=== PATIENT | male | born 1935 | race Caucasian/White ===

== ENCOUNTER 2018-11-21 08:18 | Emergency (ER) | payer MEDICARE, OTHER ==
[2018-11-21] MEDS ORDERED: OXYMETAZOLINE HCL 0.05% NASAL SPRAY 15 ML BOTTLE NASL ONE (08:58)
[2018-11-21] MEDS ORDERED: TRANEXAMIC ACID INJ/PF 1,000 MG/10 ML SDV IV ONE (09:16)
--- NOTE | 2018-11-21 09:17 | ER Document Report ---
ED ENT - General Chief Complaint: Nose Bleed Stated Complaint: NOSE BLEED Time Seen by Provider: 11/21/18 08:51 Mode of Arrival: Ambulatory Information source: Patient Notes: Patient presents complaining of left-sided nosebleed that started around 740 this morning. Patient did pack his nose with tissue and the bleeding has stopped. Patient states that he has had a history of a nasal fracture and has had this problem in the past that required cautery to stop the bleeding. Patient states that during the winter months when it is dry he will occasionally have nosebleeds. Patient denies any new trauma to the nose. Patient does take Xarelto for A. fib. Patient denies any other abnormal bleeding or bruising. TRAVEL OUTSIDE OF THE [place] IN LAST 30 DAYS: No - HPI Patient complains to provider of: Nose problem Onset: This morning Onset/Duration: Sudden Pain Level: Denies Associated symptoms: Nose bleed Similar symptoms previously: Yes Recently seen / treated by doctor: No - Related Data Allergies/Adverse Reactions: No Known Allergies Allergy (Verified 11/21/18 08:22) Past Medical History - General Information source: Patient - Social History Smoking Status: Never Smoker Frequency of alcohol use: None Drug Abuse: None Lives with: Spouse/Significant other Family History: Reviewed & Not Pertinent Patient has suicidal ideation: No Patient has homicidal ideation: No - Medical History Medical History: Other - Agent orange exposure - Past Medical History Cardiac Medical History: Reports: Hx Atrial Fibrillation, Hx Hypercholesterolemia, Hx Hypertension Renal/ Medical History: Denies: Hx Peritoneal Dialysis Past Surgical History: Reports: Hx Cardiac Surgery - Pacemaker defibrillator Review of Systems - Review of Systems Constitutional: No symptoms reported. denies: Fever, Recent illness EENT: Nose discharge Cardiovascular: No symptoms reported. denies: Chest pain, Syncope, Dizziness Respiratory: No symptoms reported. denies: Cough, Short of breath Gastrointestinal: No symptoms reported. denies: Vomiting Genitourinary: No symptoms reported Male Genitourinary: No symptoms reported Musculoskeletal: No symptoms reported Skin: No symptoms reported Hematologic/Lymphatic: No symptoms reported Neurological/Psychological: No symptoms reported. denies: Weakness, Lost consciousness, Headaches Physical Exam - Vital signs Vitals: Pulse Resp BP Pulse Ox 81 18 125/70 97 11/21/18 11:00 11/21/18 11:00 11/21/18 11:00 11/21/18 11:00 - General General appearance: Appears well, Alert In distress: None - HEENT Head: Normocephalic, Atraumatic Eyes: Normal Conjunctiva: Normal Nasal: Epistaxis Mouth/Lips: Normal Mucous membranes: Normal Neck: Normal, Supple. No: Lymphadenopathy - Respiratory Respiratory status: No respiratory distress Chest status: Nontender Breath sounds: Normal. No: Rales, Rhonchi, Stridor, Wheezing Chest palpation: Normal - Cardiovascular Rhythm: Regular Heart sounds: S1 appreciated, S2 appreciated - Abdominal Inspection: Normal Distension: No distension Bowel sounds: Normal Tenderness: Nontender - Back Back: Normal, Nontender - Extremities General upper extremity: Normal inspection, Normal ROM General lower extremity: Normal inspection, Normal ROM - Neurological Neuro grossly intact: Yes Cognition: Normal [place]iss Coma Scale Eye Opening: Spontaneous [place] Coma Scale Verbal: Oriented [place] Coma Scale Motor: Obeys Commands Criss Coma Scale Total: 15 - Psychological Associated symptoms: Normal affect, Normal mood - Skin Skin Temperature: Warm Skin Moisture: Dry Skin Color: Normal Course - Re-evaluation Re-evalutation: 11/21/18 09:16 Attempted control of epistaxis with the use of Afrin packing and pressure to the nose. Patient continues with bloody drainage from left nostril. Consulted with Dr. Vance, recommends TXA nasally, does not recommend labs at this time. Does recommend advising patient to hold his dose of Xarelto for today only. 11/21/18 09:30 TXA administered via atomizer to left nostril. 11/21/18 10:15 no additional bleeding noted. No blood noted in posterior pharynx. Patient encouraged to call his primary doctor to discuss his medication regimen given that he takes Xarelto. - Vital Signs Vital signs: Temp Pulse Resp BP Pulse Ox 81 18 125/70 97 11/21/18 11:00 11/21/18 11:00 11/21/18 11:00 11/21/18 11:00 Discharge - Discharge Clinical Impression: Left-sided nosebleed Condition: Stable Disposition: HOME, SELF-CARE Instructions: Nosebleed Instructions ([facility]) Additional Instructions: Return immediately for any new or worsening symptoms Followup with your primary care provider, call today to make a followup appointment Hold your dose of Xarelto for today only. Referrals: WIL SWEENEY MD [Primary Care Provider] - Follow up as needed
[2018-11-21 11:00] VITALS: BP 125/70
== END 2018-11-21 11:00 | disposition home or self-care (01) ==
LOC: ER 08:18
DX: R04.0 Epistaxis (principal); I48.91 Unspecified atrial fibrillation; Z79.01 Long term (current) use of anticoagulants; I10 Essential (primary) hypertension; Z95.810 Presence of automatic (implantable) cardiac defibrillator
CPT/HCPCS: 99283; 30901; J3490 ×2

== ENCOUNTER 2019-05-20 01:28 | Emergency (ER) | payer MEDICARE, OTHER ==
[2019-05-20 02:15] LABS: ABSOLUTE BASOPHILS # (AUTO) 0.1 10^3/uL (0.0-0.2); ABSOLUTE LYMPHOCYTES (AUTO) 1.5 10^3/uL (0.5-4.7); ABSOLUTE MONOCYTES (AUTO) 0.7 10^3/uL (0.1-1.4); ABSOLUTE NEUT (AUTO) 6.5 10^3/uL (1.7-8.2); BASOPHILS % (AUTO) 0.6 % (0-2); EOSINOPHILS % (AUTO) 0.6 % (0-6); HEMATOCRIT 41.5 % (37.9-51.0); MEAN CORPUSCULAR HEMOGLOBIN 27.9 pg (27.0-33.4); MEAN CORPUSCULAR HGB CONC 33.8 g/dL (32.0-36.0); MEAN CORPUSCULAR VOLUME 83 fl (80-97); MONOCYTES % (AUTO) 7.6 % (3-13); PLATELET COUNT 238 10^3/uL (150-450); RED BLOOD COUNT 5.02 10^6/uL (4.35-5.55); SEGMENTED NEUTROPHILS % (AUTO) 74.2 % (42-78); TOTAL CELLS COUNTED % (AUTO) 100 %; WHITE BLOOD COUNT 8.7 10^3/uL (4.0-10.5)
[2019-05-20 02:18] LABS: APPEARANCE,URINE CLEAR; BILIRUBIN,URINE NEGATIVE (NEGATIVE); COLOR,URINE AMBER; GLUCOSE, URINE NEGATIVE (NEGATIVE); KETONES,URINE NEGATIVE (NEGATIVE); LEUKOCYTE ESTERASE,URINE NEGATIVE (NEGATIVE); NITRITE,URINE POSITIVE (NEGATIVE); PROTEIN,URINE NEGATIVE (NEGATIVE); URINE SPECIFIC GRAVITY 1.014
[2019-05-20 02:40] LABS: ALANINE AMINOTRANSFERASE 34 U/L (21-72); ALBUMIN 3.7 g/dL (3.5-5.0); ALKALINE PHOSPHATASE 62 U/L (38-126); ANION GAP 9 (5-19); ASPARTATE AMINO TRANSFERASE 32 U/L (17-59); BILIRUBIN,DIRECT 0.3 mg/dL (0.0-0.4); BILIRUBIN,TOTAL 0.7 mg/dL (0.2-1.3); BLOOD UREA NITROGEN 18 mg/dL (7-20); CALCIUM 9.5 mg/dL (8.4-10.2); CARBON DIOXIDE 23 mmol/L (22-30); CHLORIDE 104 mmol/L (98-107); CREATINE KINASE 36 U/L (55-170); GLUCOSE 95 mg/dL (75-110); POTASSIUM 4.4 mmol/L (3.6-5.0); SODIUM 136.3 mmol/L (137-145)
[2019-05-20 02:53] LABS: TROPONIN I < 0.012 ng/mL
--- NOTE | 2019-05-20 03:03 | ER Document Report ---
ED General - General Chief Complaint: Near Syncope Stated Complaint: NEAR SYNCOPE Time Seen by Provider: 05/20/19 02:35 Primary Care Provider: WIL SWEENEY MD [Primary Care Provider] - Follow up in 3-5 days Notes: Patient is a 84-year-old male that presents to the emergency department for chief complaint of lightheadedness. Patient states that he stood up this morning, and felt lightheaded, felt like he may pass out, so EMS was called. He states he is being treated for prostatitis, has been on an antibiotic since Saturday, he was drinking plenty of fluids over the past several days, but today he only had 2 bottles of water, because he thought he did not need to drink as much fluids because the burning with urination had resolved. Per EMS he did have positive orthostatics, was given IV fluids a total of 500 mL's, and the patient at this time is feeling much better, denies lightheadedness, he did not have chest pain, nausea or vomiting associated with this. He denies having any shortness of breath, headache, blurred vision, numbness, tingling or weakness in any extremity. Denies any complaints at this time. He does report that he is taking Bactrim, and has been taking it twice daily since Saturday. Past Medical History: CHF, hypertension, hyperlipidemia, CAD Past Surgical History: PCI with stenting x2, AICD Social History: Denies tobacco, alcohol or drug use. Family History: Reviewed and noncontributory for presenting illness Allergies: Reviewed, see documented allergy list. REVIEW OF SYSTEMS: Other than noted above, the 12 point review of systems was reviewed with the patient and were negative, all pertinent findings are included in the HPI. PHYSICAL EXAMINATION: Vital signs reviewed, nursing noted reviewed. GENERAL: Elderly male, no acute distress HEAD: Atraumatic, normocephalic. EYES: Eyes appear normal, extraocular movements intact, sclera anicteric, conjunctiva are normal. ENT: nares patent, oropharynx clear without exudates. Moist mucous membranes. NECK: Normal range of motion, supple without lymphadenopathy LUNGS: Breath sounds clear to auscultation bilaterally and equal. No wheezes rales or rhonchi. HEART: Regular rate and rhythm without murmurs ABDOMEN: Soft, nontender, normoactive bowel sounds. No rebound, guarding, or rigidity. No masses appreciated. EXTREMITIES: Nontender, good range of motion, no pitting or edema. NEUROLOGICAL: No focal neurological deficits. Moves all extremities spontaneously Motor and sensory grossly intact on exam. PSYCH: Normal mood, normal affect. SKIN: Warm, Dry, normal turgor, no rashes or lesions noted on exposed skin TRAVEL OUTSIDE OF THE [place] IN LAST 30 DAYS: No - Related Data Allergies/Adverse Reactions: No Known Allergies Allergy (Verified 11/21/18 08:22) Past Medical History - Social History Smoking Status: Unknown if Ever Smoked Family History: Reviewed & Not Pertinent Patient has suicidal ideation: No Patient has homicidal ideation: No - Past Medical History Cardiac Medical History: Reports: Hx Atrial Fibrillation, Hx Hypercholesterolemia, Hx Hypertension Renal/ Medical History: Denies: Hx Peritoneal Dialysis Past Surgical History: Reports: Hx Cardiac Surgery - Pacemaker defibrillator Physical Exam - Vital signs Vitals: Temp 98.1 F 05/20/19 01:40 Course - Re-evaluation Re-evalutation: Patient seen and examined vital signs reviewed. Laboratory data and/or imaging were ordered as appropriate for the patient's presenting symptoms and complaint, with consideration of any critical or life threatening conditions that may be associated with their obtained history and exam as noted above. Patient was treated with IV fluids, provided by EMS, total 500 mL's Results were reviewed when available and demonstrated very mild hyponatremia, creatinine was 1.3, no baseline for comparison, otherwise patient's blood work was unremarkable, EKG did not demonstrate any abnormal dysrhythmias, or concerning findings, UA did demonstrate positive for nitrites, but was otherwise negative. The patient was re-evaluated and was stable, asymptomatic, patient was able to ambulate around the emergency department, without any difficulty or any symptoms. I did discuss with the patient and the patient's , that Bactrim is not a good medication given that he has mild chronic kidney disease, is elderly, and on an SUSAN inhibitor, he takes ramipril, the risk of hyperkalemia and sudden is high in the situation particular with Bactrim, advised to discontinue his medication, and will place him on Omnicef, take for 10 additional days. They were agreeable with this plan of care. Evaluation was most consistent with near syncope, mild dehydration, advised to continue drinking plenty of fluids, if he has repeat symptoms to return, I do feel the patient had orthostatic syncope today, and is safe to be discharged at this time and the patient was agreeable with this plan of care and did feel safe going home. Results were discussed with the patient at this point, after careful consideration I feel that that patient can be discharged from the emergency department, the patient was educated treatments and reasons to return to the em ergency department based on their presumed diagnosis as noted above, they were advised to followup with a primary care physician in 2-3 days. Patient was agreeable to plan of care. *Note is created using voice recognition software and may contain spelling, syntax or grammatical errors. Laboratory 05/20/19 05/20/19 05/20/19 01:55 01:55 01:55 WBC 8.7 RBC 5.02 Hgb 14.0 Hct 41.5 MCV 83 MCH 27.9 MCHC 33.8 RDW 15.0 H Plt Count 238 Seg Neutrophils % 74.2 Lymphocytes % 17.0 Monocytes % 7.6 Eosinophils % 0.6 Basophils % 0.6 Absolute Neutrophils 6.5 Absolute Lymphocytes 1.5 Absolute Monocytes 0.7 Absolute Eosinophils 0.0 Absolute Basophils 0.1 Sodium 136.3 L Potassium 4.4 Chloride 104 Carbon Dioxide 23 Anion Gap 9 BUN 18 Creatinine 1.35 H Est GFR ( Amer) > 60 Est GFR (Non-Af Amer) 50 L Glucose 95 Calcium 9.5 Total Bilirubin 0.7 Direct Bilirubin 0.3 Neonat Total Bilirubin Not Reportable Neonat Direct Bilirubin Not Reportable Neonat Indirect Bili Not Reportable AST 32 ALT 34 Alkaline Phosphatase 62 Creatine Kinase 36 L CK-MB (CK-2) 1.50 Troponin I < 0.012 Total Protein 6.0 L Albumin 3.7 Urine Color Urine Appearance Urine pH Ur Specific [place] Urine Protein Urine Glucose (UA) Urine Ketones Urine Blood Urine Nitrite Urine Bilirubin Urine Urobilinogen Ur Leukocyte Esterase Urine WBC (Auto) Urine RBC (Auto) U Hyaline Cast (Auto) Squamous Epi Cells Auto Urine Mucus (Auto) Urine Ascorbic Acid 05/20/19 02:03 WBC RBC Hgb Hct MCV MCH MCHC RDW Plt Count Seg Neutrophils % Lymphocytes % Monocytes % Eosinophils % Basophils % Absolute Neutrophils Absolute Lymphocytes Absolute Monocytes Absolute Eosinophils Absolute Basophils Sodium Potassium Chloride Carbon Dioxide Anion Gap BUN Creatinine Est GFR ( Amer) Est GFR (Non-Af Amer) Glucose Calcium Total Bilirubin Direct Bilirubin Neonat Total Bilirubin Neonat Direct Bilirubin Neonat Indirect Bili AST ALT Alkaline Phosphatase Creatine Kinase CK-MB (CK-2) Troponin I Total Protein Albumin Urine Color BETINA Urine Appearance CLEAR Urine pH 6.0 Ur Specific [place] 1.014 Urine Protein NEGATIVE Urine Glucose (UA) NEGATIVE Urine Ketones NEGATIVE Urine Blood NEGATIVE Urine Nitrite POSITIVE H Urine Bilirubin NEGATIVE Urine Urobilinogen 4.0 H Ur Leukocyte Esterase NEGATIVE Urine WBC (Auto) 1 Urine RBC (Auto) 1 U Hyaline Cast (Auto) 1 Squamous Epi Cells Auto <1 Urine Mucus (Auto) RARE Urine Ascorbic Acid NEGATIVE - Vital Signs Vital signs: Temp Pulse Resp BP Pulse Ox 98.1 F 17 115/81 94 05/20/19 01:40 05/20/19 04:00 05/20/19 03:01 05/20/19 04:00 - Laboratory Result Diagrams: 05/20/19 01:55 05/20/19 01:55 Laboratory results interpreted by me: 05/20/19 05/20/19 05/20/19 01:55 01:55 02:03 RDW 15.0 H Sodium 136.3 L Creatinine 1.35 H Est GFR (Non-Af Amer) 50 L Creatine Kinase 36 L Total Protein 6.0 L Urine Nitrite POSITIVE H Urine Urobilinogen 4.0 H - EKG Interpretation by Me Additional EKG results interpreted by me: EKG demonstrates atrial paced rhythm with a ventricular rate of 69 bpm, left axis deviation, QTC 480 ms, no ST elevation, no prior for comparison at this time. Discharge - Discharge Clinical Impression: Near syncope Condition: Stable Disposition: HOME, SELF-CARE Instructions: Near Syncopal Episode ([facility]) Additional Instructions: Please discontinue taking the Bactrim as been prescribed, and I have switched you to a different medication called cefdinir to treat the urinary tract infection, please take this twice daily for 10 days. Please follow-up with your primary care physician. Maintain your hydration, drink plenty of fluids throughout the day. Prescriptions: RX: Cefdinir 300 mg PO BID #20 capsule Referrals: WIL SWEENEY MD [Primary Care Provider] - Follow up in 3-5 days
[2019-05-20 03:33] VITALS: BP 115/81
--- NOTE | 2019-05-20 17:57 | EKG REPORT ---
SEVERITY:- ABNORMAL ECG - ATRIAL-PACED RHYTHM PROBABLE INFERIOR INFARCT, AGE INDETERMINATE BORDERLINE PROLONGED QT INTERVAL : Confirmed by: Leidy Correa 20-May-2019 17:56:05
== END 2019-05-20 04:17 | disposition home or self-care (01) ==
LOC: ER 01:28
DX: R42 Dizziness and giddiness (principal); I50.9 Heart failure, unspecified; I11.0 Hypertensive heart disease with heart failure; I25.10 Atherosclerotic heart disease of native coronary artery without angina pectoris
CPT/HCPCS: 36415; 80053; 81001; 82550; 82553; 84484; 85025; 87086; 93005; 93010; 99284

== ENCOUNTER 2019-05-21 02:38 | Observation (INO) | payer MEDICARE, OTHER ==
[2019-05-21 05:38] LABS: ABSOLUTE BASOPHILS # (AUTO) 0.1 10^3/uL (0.0-0.2); ABSOLUTE EOSINOPHILS # (AUTO) 0.1 10^3/uL (0.0-0.6); ABSOLUTE LYMPHOCYTES (AUTO) 1.5 10^3/uL (0.5-4.7); ABSOLUTE MONOCYTES (AUTO) 0.8 10^3/uL (0.1-1.4); ABSOLUTE NEUT (AUTO) 6.8 10^3/uL (1.7-8.2); BASOPHILS % (AUTO) 0.7 % (0-2); EOSINOPHILS % (AUTO) 0.6 % (0-6); HEMATOCRIT 43.6 % (37.9-51.0); HEMOGLOBIN 14.7 g/dL (13.5-17.0); LYMPHOCYTES % (AUTO) 16.6 % (13-45); MEAN CORPUSCULAR HEMOGLOBIN 27.9 pg (27.0-33.4); MEAN CORPUSCULAR HGB CONC 33.7 g/dL (32.0-36.0); MEAN CORPUSCULAR VOLUME 83 fl (80-97); MONOCYTES % (AUTO) 8.1 % (3-13); PLATELET COUNT 244 10^3/uL (150-450); RED BLOOD COUNT 5.27 10^6/uL (4.35-5.55); RED CELL DISTRIBUTION WIDTH 15.2 % (11.5-14.0); TOTAL CELLS COUNTED % (AUTO) 100 %; WHITE BLOOD COUNT 9.3 10^3/uL (4.0-10.5)
[2019-05-21 06:26] LABS: ALANINE AMINOTRANSFERASE 36 U/L (21-72); ALKALINE PHOSPHATASE 67 U/L (38-126); ANION GAP 8 (5-19); ASPARTATE AMINO TRANSFERASE 30 U/L (17-59); BILIRUBIN,DIRECT 0.2 mg/dL (0.0-0.4); BLOOD UREA NITROGEN 20 mg/dL (7-20); CARBON DIOXIDE 26 mmol/L (22-30); CHLORIDE 101 mmol/L (98-107); CREATINE KINASE 36 U/L (55-170); GLUCOSE 106 mg/dL (75-110); POTASSIUM 4.4 mmol/L (3.6-5.0); SODIUM 134.9 mmol/L (137-145); TOTAL PROTEIN 6.6 g/dL (6.3-8.2)
[2019-05-21 06:38] LABS: CREATINE KINASE MB 1.65 ng/mL (<4.55)
[2019-05-21 06:39] LABS: TROPONIN I < 0.012 ng/mL
--- NOTE | 2019-05-21 06:47 | ER Document Report ---
ED General - General Chief Complaint: Abdominal Pain >50 Stated Complaint: WEAKNESS Time Seen by Provider: 05/21/19 06:28 Primary Care Provider: WIL SWEENEY MD [Primary Care Provider] - Follow up as needed TRAVEL OUTSIDE OF THE [place] IN LAST 30 DAYS: No - HPI Notes: Patient is a 84-year-old male that presents to the emergency department for chief complaint of chest pain. Patient reports last night he was sleeping in his recliner chair. He states he was in and out of sleep when he started to feel a heaviness in his left chest. He states it was left parasternal near his inframammary line. He describes it as a heaviness that was constant for about 30 minutes. He reported feeling dizzy and lightheaded. Patient denied associated shortness of breath diaphoresis nausea or vomiting. He states that it felt like he was having gas. He denies aggravating or relieving factors. Currently he states he is feeling much better. He is no longer having this heaviness. He did take 4 baby aspirin during this episode around 2 AM this morning. Patient has a history of coronary stenting x2. He had one stent placed in 2003 and the second in 2013. He has not had cardiac stress test in the last few years. He does have an appointment with his environmental health physician next week for routine follow-up. Past Medical History: CHF, hypertension, hyperlipidemia, CAD Past Surgical History: PCI with stenting x2, AICD Social History: Denies tobacco, alcohol or drug use. Family History: Reviewed and noncontributory for presenting illness Allergies: Reviewed, see documented allergy list. REVIEW OF SYSTEMS: CONSTITUTIONAL : No fever No chills No diaphoresis No recent illness EENT: No vision changes No congestion No sore throat CARDIOVASCULAR: chest pain No palpitations RESPIRATORY: No shortness of breath No cough No difficulty breathing GASTROINTESTINAL: No abdominal pain No nausea No vomiting No diarrhea GENITOURINARY: No dysuria No hematuria No difficulty urinating MUSCULOSKELETAL: No back pain No leg pain No arm pain SKIN: No rashes No lesions LYMPHATIC: No swollen, enlarged glands. NEUROLOGICAL: lightheadedness No headache No weakness No paresthesias PSYCHIATRIC: No anxiety No depression PHYSICAL EXAMINATION: Vital signs reviewed, nursing noted reviewed. GENERAL: Well-appearing, well-nourished and in no acute distress. HEAD: Atraumatic, normocephalic. EYES: Eyes appear normal, extraocular movements intact, sclera anicteric, conjunctiva are normal. ENT: nares patent, oropharynx clear without exudates. Moist mucous membranes. NECK: Normal range of motion, supple without lymphadenopathy LUNGS: Breath sounds clear to auscultation bilaterally and equal. No wheezes rales or rhonchi. HEART: Regular rate and rhythm without murmurs, +2/4 bilateral radial pulses ABDOMEN: Soft, nontender, normoactive bowel sounds. No rebound, guarding, or rigidity. No masses appreciated. EXTREMITIES: Nontender, good range of motion, no pitting or edema. NEUROLOGICAL: No focal neurological deficits. Moves all extremities spontaneously Motor and sensory grossly intact on exam. PSYCH: Normal mood, normal affect. SKIN: Warm, Dry, normal turgor, no rashes or lesions noted on exposed skin - Related Data Allergies/Adverse Reactions: No Known Allergies Allergy (Verified 11/21/18 08:22) Past Medical History - Social History Smoking Status: Never Smoker Chew tobacco use (# tins/day): No Frequency of alcohol use: None Drug Abuse: None Family History: Reviewed & Not Pertinent Patient has suicidal ideation: No Patient has homicidal ideation: No - Past Medical History Cardiac Medical History: Reports: Hx Atrial Fibrillation, Hx Hypercholesterolemia, Hx Hypertension Renal/ Medical History: Denies: Hx Peritoneal Dialysis Past Surgical History: Reports: Hx Cardiac Surgery - Pacemaker defibrillator Physical Exam - Vital signs Vitals: Temp Pulse Resp BP Pulse Ox 99 F 70 20 100/63 97 05/21/19 02:44 05/21/19 02:44 05/21/19 02:44 05/21/19 02:44 05/21/19 02:44 Course - Re-evaluation Re-evalutation: 05/21/19 06:45 Vitals reviewed. Nursing notes reviewed. Patient had 4 baby aspirin about 4-1/ 2 hours ago. He is currently asymptomatic. Patient was seen here yesterday and diagnosed with urinary tract infection as well as orthostatic hypotension. He reports the chest pain he experienced last night was a new symptom and was not going on yesterday. Patient is on telemetry monitoring. EKG shows atrial paced rhythm with no ST elevations 05/21/19 07:45 Patient's lab work shows mild elevation in creatinine at 1.3. He has a normal troponin. The remainder of his work-up is unremarkable including chest x-ray. Patient does have significant cardiac history and will be admitted to the [facility] for telemetry monitoring and further cardiac evaluation. Patient has not had recurrence of his chest pain while in the emergency room. He and his are in agreement with this plan of care. He is stable at time of admission. Laboratory 05/21/19 05/21/19 05/21/19 05:16 05:16 05:16 WBC 9.3 RBC 5.27 Hgb 14.7 Hct 43.6 MCV 83 MCH 27.9 MCHC 33.7 RDW 15.2 H Plt Count 244 Seg Neutrophils % 74.0 Lymphocytes % 16.6 Monocytes % 8.1 Eosinophils % 0.6 Basophils % 0.7 Absolute Neutrophils 6.8 Absolute Lymphocytes 1.5 Absolute Monocytes 0.8 Absolute Eosinophils 0.1 Absolute Basophils 0.1 Sodium Cancelled Potassium Cancelled Chloride Cancelled Carbon Dioxide Cancelled Anion Gap Cancelled BUN Cancelled Creatinine Cancelled Est GFR ( Amer) Cancelled Est GFR (Non-Af Amer) Cancelled Glucose Cancelled Calcium Cancelled Total Bilirubin Cancelled Direct Bilirubin Cancelled Neonat Total Bilirubin Cancelled Neonat Direct Bilirubin Cancelled Neonat Indirect Bili Cancelled AST Cancelled ALT Cancelled Alkaline Phosphatase Cancelled Creatine Kinase Cancelled CK-MB (CK-2) Cancelled Troponin I Cancelled Total Protein Cancelled Albumin Cancelled 05/21/19 05/21/19 06:01 06:01 WBC RBC Hgb Hct MCV MCH MCHC RDW Plt Count Seg Neutrophils % Lymphocytes % Monocytes % Eosinophils % Basophils % Absolute Neutrophils Absolute Lymphocytes Absolute Monocytes Absolute Eosinophils Absolute Basophils Sodium 134.9 L Potassium 4.4 Chloride 101 Carbon Dioxide 26 Anion Gap 8 BUN 20 Creatinine 1.32 H Est GFR ( Amer) > 60 Est GFR (Non-Af Amer) 52 L Glucose 106 Calcium 10.0 Total Bilirubin 1.0 Direct Bilirubin 0.2 Neonat Total Bilirubin Not Reportable Neonat Direct Bilirubin Not Reportable Neonat Indirect Bili Not Reportable AST 30 ALT 36 Alkaline Phosphatase 67 Creatine Kinase 36 L CK-MB (CK-2) 1.65 Troponin I < 0.012 Total Protein 6.6 Albumin 4.0 Chest X-Ray 05/21/19 06:29 IMPRESSION: No acute cardiopulmonary findings. 05/21/19 08:00 Patient care was discussed with Dr. Clarke and Lissy Olea who accepted admission - Vital Signs Vital signs: Temp Pulse Resp BP Pulse Ox 99 F 70 18 136/86 H 96 05/21/19 02:44 05/21/19 02:44 05/21/19 05:17 05/21/19 05:17 05/21/19 05:32 - Laboratory Result Diagrams: 05/21/19 05:16 05/21/19 06:01 Laboratory results interpreted by me: 05/21/19 05/21/19 05:16 06:01 RDW 15.2 H Sodium 134.9 L Creatinine 1.32 H Est GFR (Non-Af Amer) 52 L Creatine Kinase 36 L - EKG Interpretation by Me Additional EKG results interpreted by me: 05/21/19 06:45 Interpreted by myself [id number]: Atrially paced rhythm, rate 74, normal axis, no ectopy, no STEMI Discharge - Discharge Clinical Impression: Chest pain Qualifiers: Chest pain type: unspecified Qualified Code(s): R07.9 - Chest pain, unspecified Condition: Stable Disposition: ADMITTED OBSERVATION Admitting Provider: Vince (Hospitalist) Unit Admitted: Telemetry Referrals: WIL SWEENEY MD [Primary Care Provider] - Follow up as needed
[2019-05-21] MEDS ORDERED: NORMAL SALINE 1000 ML 500 ML IV ONE (06:48)
--- NOTE | 2019-05-21 07:31 | RADIOLOGY REPORT (SQ) ---
EXAM DESCRIPTION: XR CHEST 1 VIEW COMPLETED DATE/TME: 05/21/2019 06:29 CLINICAL HISTORY: 84 years Male, chest pain COMPARISON: None. NUMBER OF VIEWS/TECHNIQUE: 1/AP FINDINGS: Adequate lung volume, clear parenchyma, normal cardiac silhouette, and intact bony thorax. Left cardiac stimulator with leads. Atherosclerotic vascular disease. IMPRESSION: No acute cardiopulmonary findings.
[2019-05-21] MEDS ORDERED: NITROGLYCERIN 0.4 MG/TAB 25 TAB/BOTTLE SL PRN (08:46)
[2019-05-21] MEDS ORDERED: ACETAMINOPHEN 325 MG TABLET PO PRN (08:46)
[2019-05-21] MEDS ORDERED: ASPIRIN 81 MG TABLET, ENT COATED PO SCH (10:00)
[2019-05-21] MEDS ORDERED: CEFTRIAXONE 1 GM/D5W RTU 1 GM/50 ML RTUPB IV SCH (10:00)
[2019-05-21] MEDS: FAMOTIDINE 20 MG TABLET PO SCH ×2 (10:26→17:36)
[2019-05-21] MEDS: CEFTRIAXONE SODIUM 1,000 MG in DEXTROSE 5%-WATER 50 ML IV SCH (10:26)
--- NOTE | 2019-05-21 15:57 | PDOC H&P ---
History of Present Illness Admission Date/PCP: 05/21/19 08:23 WIL SWEENEY MD Patient complains of: epigastric pain History of Present Illness: PARAG HERRERA is a 84 year old male with a past medical history significant for CO with stents x2, atrial fibrillation chronically anticoagulated on Xarelto, hypertension, hyperlipidemia, and pacemaker who presented to the emergency department today with a complaint of sudden onset epigastric/chest discomfort that woke him from his sleep at approximately 2 AM. Patient describes the pain as heaviness that was nonradiating and lasted approximately 30 minutes. Patient had no other associated symptoms and denies alleviating or aggravating factors. Of note, the patient was seen in the emergency department yesterday and diagnosed with a UTI. He was discharged home with p.o. Ceftin. He denies continued urgency, frequency and dysuria though is also on Pyridium. Evaluation in the emergency department is unremarkable with normal CBC, chemistry, negative troponin, benign chest x-ray, and EKG demonstrating an atrial paced rhythm. He is referred to the hospitalist service for evaluation and management of the above-stated complaints and findings. Past Medical History Cardiac Medical History: Reports: Atrial Fibrillation, Myocardial Infarction, Hyperlipidema, Hypertension Pulmonary Medical History: Reports: None EENT Medical History: Reports: None Neurological Medical History: Reports: None Endocrine Medical History: Reports: None Renal/ Medical History: Reports: None Malignancy Medical History: Reports: None GI Medical History: Reports: None Musculoskeltal Medical History: Reports: None Skin Medical History: Reports: None Psychiatric Medical History: Reports: None Traumatic Medical History: Reports: None Hematology: Reports: None Infectious Medical History: Reports: None Past Surgical History Past Surgical History: Reports: Cardiac Catheterization, Coronary Stent, Hip Replacement Social History Information Source: Patient Lives with: Spouse/Significant other Smoking Status: Never Smoker Frequency of Alcohol Use: None Hx Recreational Drug Use: No Hx Prescription Drug Abuse: No - Advance Directive Resuscitation Status: Full Code Family History Family History: Reviewed & Not Pertinent Parental Family History Reviewed: Yes Children Family History Reviewed: Yes Sibling(s) Family History Reviewed.: Yes Medication/Allergy Home Medications: Aspirin [Aspirin 81 mg Chewable Tablet] 81 mg PO DAILY 05/21/19 Celecoxib [Celebrex 200 mg Capsule] 200 mg PO Q12HP PRN 05/21/19 Latanoprost [Xalatan 0.005% Oph Soln 2.5 ml] 1 drop OU QHS 05/21/19 Ramipril [Altace 2.5 mg Capsule] 5 mg PO DAILY 05/21/19 Rivaroxaban [Xarelto] 20 mg PO DAILY 05/21/19 Rosuvastatin Calcium [Crestor 10 mg Tablet] 10 mg PO QHS 05/21/19 Sotalol HCl [Sotalol Af] 80 mg PO Q12 05/21/19 Tamsulosin HCl [Flomax 0.4 mg Cap.sr] 0.4 mg PO DAILY 05/21/19 Allergies/Adverse Reactions: No Known Allergies Allergy (Verified 11/21/18 08:22) Review of Systems Constitutional: ABSENT: chills, fever(s), headache(s), weight gain, weight loss Eyes: ABSENT: visual disturbances Ears: ABSENT: hearing changes Cardiovascular: PRESENT: chest pain. ABSENT: dyspnea on exertion, edema, orthropnea, palpitations Respiratory: ABSENT: cough, hemoptysis Gastrointestinal: PRESENT: bloating. ABSENT: abdominal pain, constipation, diarrhea, hematemesis, hematochezia, nausea, vomiting Genitourinary: ABSENT: dysuria, hematuria Musculoskeletal: ABSENT: joint swelling Integumentary: ABSENT: rash, wounds Neurological: ABSENT: abnormal gait, abnormal speech, confusion, dizziness, focal weakness, syncope Psychiatric: ABSENT: anxiety, depression, homidical ideation, suicidal ideation Endocrine: ABSENT: cold intolerance, heat intolerance, polydipsia, polyuria Hematologic/Lymphatic: ABSENT: easy bleeding, easy bruising Physical Exam Vital Signs: Temp Pulse Resp BP Pulse Ox 99 F 75 15 109/66 80 L 05/21/19 02:44 05/21/19 15:26 05/21/19 15:01 05/21/19 15:01 05/21/19 15:01 Intake & Output 05/20/19 05/21/19 05/22/19 06:59 06:59 06:59 Intake Total 500 Output Total 500 Balance 0 Weight 88.5 kg General appearance: PRESENT: no acute distress, well-developed, well-nourished - Overweight Head exam: PRESENT: atraumatic, normocephalic Eye exam: PRESENT: conjunctiva pink, EOMI, PERRLA. ABSENT: scleral icterus Ear exam: PRESENT: normal external ear exam Mouth exam: PRESENT: moist, tongue midline Neck exam: ABSENT: carotid bruit, JVD, lymphadenopathy, thyromegaly Respiratory exam: PRESENT: clear to auscultation clary, symmetrical, unlabored. ABSENT: rales, rhonchi, wheezes Cardiovascular exam: PRESENT: RRR, +S1, +S2. ABSENT: diastolic murmur, rubs, systolic murmur Pulses: PRESENT: normal dorsalis pedis pul Vascular exam: PRESENT: normal capillary refill GI/Abdominal exam: PRESENT: normal bowel sounds, soft. ABSENT: distended, guarding, mass, organolmegaly, rebound, tenderness Rectal exam: PRESENT: deferred Extremities exam: PRESENT: full ROM. ABSENT: calf tenderness, clubbing, pedal edema Neurological exam: PRESENT: alert, awake, oriented to person, oriented to place, oriented to time, oriented to situation, CN II-XII grossly intact. ABSENT: motor sensory deficit Psychiatric exam: PRESENT: appropriate affect, normal mood. ABSENT: homicidal ideation, suicidal ideation Skin exam: PRESENT: dry, intact, warm. ABSENT: cyanosis, rash Results Laboratory Results: 05/21/19 05:16 05/21/19 06:01 05/21/19 05/21/19 05/21/19 05:16 05:16 06:01 WBC 9.3 RBC 5.27 Hgb 14.7 Hct 43.6 MCV 83 MCH 27.9 MCHC 33.7 RDW 15.2 H Plt Count 244 Seg Neutrophils % 74.0 Lymphocytes % 16.6 Monocytes % 8.1 Eosinophils % 0.6 Basophils % 0.7 Absolute Neutrophils 6.8 Absolute Lymphocytes 1.5 Absolute Monocytes 0.8 Absolute Eosinophils 0.1 Absolute Basophils 0.1 Sodium Cancelled 134.9 L Potassium Cancelled 4.4 Chloride Cancelled 101 Carbon Dioxide Cancelled 26 Anion Gap Cancelled 8 BUN Cancelled 20 Creatinine Cancelled 1.32 H Est GFR ( Amer) Cancelled > 60 Est GFR (Non-Af Amer) Cancelled 52 L Glucose Cancelled 106 Calcium Cancelled 10.0 Total Bilirubin Cancelled 1.0 AST Cancelled 30 ALT Cancelled 36 Alkaline Phosphatase Cancelled 67 Total Protein Cancelled 6.6 Albumin Cancelled 4.0 05/21/19 05/21/19 05/21/19 05:16 05:16 06:01 Creatine Kinase Cancelled CK-MB (CK-2) Cancelled 1.65 Troponin I Cancelled < 0.012 05/21/19 05/21/19 06:01 12:12 Creatine Kinase 36 L CK-MB (CK-2) Troponin I < 0.012 Impressions: Chest X-Ray 05/21/19 06:29 IMPRESSION: No acute cardiopulmonary findings. Assessment and Plan - Diagnosis (1) Chest pain Qualifiers: Chest pain type: unspecified Qualified Code(s): R07.9 - Chest pain, unspecified Is this a current diagnosis for this admission?: Yes Plan: Patient is admitted to the medical floor and continuous cardiac telemetry. We will continue to trend troponins. Continue daily aspirin and statin therapy. Sublingual nitroglycerin tabs as needed for chest pain with IV morphine for unrelieved discomfort. We will check lipid panel with a.m. lab work. We will obtain cardiac stress test. (2) UTI (urinary tract infection) Qualifiers: Urinary tract infection type: acute cystitis Is this a current diagnosis for this admission?: Yes Plan: IV Rocephin. Pyridium 3 times daily. Urine cultures pending. (3) Hypertension Is this a current diagnosis for this admission?: Yes Plan: Cardiac diet. Continue home dose Ramipril and sotalol. (4) Hyperlipidemia Is this a current diagnosis for this admission?: Yes Plan: Will check lipid panel with a.m. lab work. Cardiac diet. Continue daily statin therapy. (5) Atrial fibrillation Is this a current diagnosis for this admission?: Yes Plan: Currently in atrially paced rhythm. Rate controlled. Continue home dose sotalol and Xarelto. - Time Time Spent with patient: 25-34 minutes Medications reviewed and adjusted accordingly: Yes Anticipated discharge: Home Within: within 24 hours
--- NOTE | 2019-05-21 18:33 | EKG REPORT ---
SEVERITY:- ABNORMAL ECG - ATRIAL-PACED COMPLEXES FIRST DEGREE AV BLOCK BORDERLINE PROLONGED QT INTERVAL : Confirmed by: Leidy Correa 21-May-2019 18:33:04
[2019-05-21] MEDS: PHENAZOPYRIDINE HCL 100 MG TABLET PO SCH (21:46)
[2019-05-21] MEDS: SOTALOL HCL 80 MG TABLET PO SCH (21:46)
[2019-05-21] MEDS ORDERED: LATANOPROST 0.005% OPH SOLN 2.5 ML OU SCH (22:00)
[2019-05-21] MEDS ORDERED: ATORVASTATIN CALCIUM 40 MG TABLET PO SCH (22:00)
[2019-05-21] MEDS ORDERED: ATORVASTATIN CALCIUM 20 MG TABLET PO SCH (22:00)
[2019-05-22 05:23] LABS: ANION GAP 9 (5-19); BLOOD UREA NITROGEN 22 mg/dL (7-20); CALCIUM 9.7 mg/dL (8.4-10.2); CARBON DIOXIDE 24 mmol/L (22-30); CHLORIDE 104 mmol/L (98-107); CHOLESTEROL 116.11 mg/dL (0-200); GLUCOSE 99 mg/dL (75-110); POTASSIUM 4.5 mmol/L (3.6-5.0); TRIGLYCERIDES 95 mg/dL (<150)
[2019-05-22 05:33] LABS: DIRECT LDL 61 mg/dL (<100)
[2019-05-22] MEDS: PHENAZOPYRIDINE HCL 100 MG TABLET PO SCH ×2 (05:45→13:32)
[2019-05-22] MEDS ORDERED: RIVAROXABAN 10 MG TABLET PO SCH (10:00)
[2019-05-22] MEDS ORDERED: ASPIRIN 81 MG TABLET, CHEWABLE PO SCH (10:00)
[2019-05-22] MEDS ORDERED: TAMSULOSIN HCL 0.4 MG CAP.SR.24H PO SCH (10:00)
[2019-05-22] MEDS ORDERED: RAMIPRIL 5 MG CAPSULE PO SCH (10:00)
[2019-05-22] MEDS ORDERED: RAMIPRIL 2.5 MG CAPSULE PO SCH (10:00)
[2019-05-22] MEDS ORDERED: REGADENOSON INJ 0.4 MG/5 ML DISP.SYRIN IV ONE (10:42)
[2019-05-22] MEDS: FAMOTIDINE 20 MG TABLET PO SCH (10:52)
[2019-05-22] MEDS: SOTALOL HCL 80 MG TABLET PO SCH (10:52)
[2019-05-22] MEDS: CEFTRIAXONE SODIUM 1,000 MG in DEXTROSE 5%-WATER 50 ML IV SCH (12:13)
[2019-05-22 13:38] VITALS: BP 111/74
--- NOTE | 2019-05-25 21:21 | DRAGON STRESS TEST REPORT ---
Intravenous Lexiscan Cardiolite stress test using single photon emmision computerized tomography. Date of procedure: 05/22/2019. Ordering Provider: Dr. Aviles. Patient's status: In Patient. Indication: Chest pressure. Coronary risk factors: Patient has a history of CAD, and history of coronary artery bypass graft surgery. His risk factors his age and hypertension. Resting EKG: Atrial paced and ventricular capture. Old inferior wall [place]. Stress EKG: No changes of ischemia. The patient had no chest pain or discomfort, and there were no arrhythmias seen. Reason for termination: Protocol. Conclusions: Normal EKG and hemodynamic response to IV Lexiscan. Nuclear data: At rest the patient was given 13.73 millicuries of technetium 99m sestamibi injected intravenously. As per protocol rest non gated SPECT images were obtained. Subsequently the patient was given intravenous Lexiscan at a dose of 0.4 mg in 5 mL intravenously, followed by flush with normal saline. Subsequently the stress dose of 41.7 millicuries of technetium 99m sestamibi was injected intravenously. As per protocol stress gated images were obtained. Nuclear interpretation: Review of images showed that there is a perfusion defect involving the inferior inferior wall in both the rest and stress images. This area had diminished motion contraction and thickening by gated study. Hence this is consistent with prior myocardial infarction. The rest of the segments of the myocardium had normal perfusion at rest, and normal perfusion post stress with IV Lexiscan. The rest of the segments of the myocardium had normal motion, contraction, and thickening by gated study. T. I D. ratio was normal at 1.17. There is no transient ischemic dilatation of the left ventricle. Computer read rest, and stress left ventricular ejection fraction were 56 %, and 48 %, respectively. Visually both the stress and rest ejection fractions were normal, and greater than 55%. Conclusion: 1. There is no scintigraphic evidence of Lexiscan induced myocardial ischemia. 2. There is scintigraphic evidence of myocardial infarction/scar of the inferior wall. Recommendations: 1. Aggressive treatment of coronary artery disease. 2. Aggressive risk factor modification, and treating the underlying co- morbidities. 3. Close cardiology follow-up as an outpatient. BOOM
--- NOTE | 2019-05-26 14:02 | PDOC DISCHARGE SUMMARY ---
General - Admit/Disc Date/PCP Admission Date/Primary Care Provider: 05/21/19 08:23 WIL SWEENEY MD Discharge Date: 05/22/19 - Discharge Diagnosis (1) Chest pain Is this a current diagnosis for this admission?: Yes Summary: Patient is admitted to the medical floor and continuous cardiac telemetry. EKG and CXR are reassuring Troponins are negative x4 Lipid panel is acceptable. Patient was admitted to the medical floor on continuous telemetry. He was continued on daily aspirin and statin therapy. He had no further episodes of chest discomfort and remained in atrial paced rh ythm throughout admission. Cardiolite stress testing was preformed; a fixed defect was noted but no reversable ischemia. Spoke with interpreting education spec; patient is cleared for discharge to home with routine follow up with established education spec. (2) UTI (urinary tract infection) Is this a current diagnosis for this admission?: Yes Summary: Patient was on p.o. antibiotics for UTI diagnosed prior to admission. He was provided Pyridium 3 times daily for symptom management. Recommend he complete his prescribed course of antibiotic therapy. (3) Hypertension Is this a current diagnosis for this admission?: Yes Summary: Acceptable blood pressures. Cardiac diet. Continue home dose Ramipril and sotalol. (4) Hyperlipidemia Is this a current diagnosis for this admission?: Yes Summary: Lipid panel is normal. Cardiac diet. Continue daily statin therapy. (5) Atrial fibrillation Is this a current diagnosis for this admission?: Yes Summary: Currently in atrially paced rhythm. Rate controlled. Continue home dose sotalol and Xarelto. - Additional Information Resuscitation Status: Full Code Discharge Diet: Cardiac Discharge Activity: Activity As Tolerated, Balance Activity w/Rest Prescriptions: Phenazopyridine HCl [Pyridium 200 mg Tablet] 200 mg PO TID #15 tablet Home Medications: Aspirin [Aspirin 81 mg Chewable Tablet] 81 mg PO DAILY 05/21/19 Celecoxib [Celebrex 200 mg Capsule] 200 mg PO Q12HP PRN 05/21/19 Latanoprost [Xalatan 0.005% Oph Soln 2.5 ml] 1 drop OU QHS 05/21/19 Ramipril [Altace 2.5 mg Capsule] 5 mg PO DAILY 05/21/19 Rivaroxaban [Xarelto] 20 mg PO DAILY 05/21/19 Rosuvastatin Calcium [Crestor 10 mg Tablet] 10 mg PO QHS 05/21/19 Sotalol HCl [Sotalol AF] 80 mg PO Q12 05/21/19 Tamsulosin HCl [Flomax 0.4 mg Cap.sr] 0.4 mg PO DAILY 05/21/19 Acetaminophen [Tylenol 325 mg Tablet] 650 mg PO Q4HP PRN tablet 05/22/19 Phenazopyridine HCl [Pyridium 200 mg Tablet] 200 mg PO TID #15 tablet 05/22/19 History of Present Illness History of Present Illness: PARAG HERRERA is a 84 year old male with a past medical history significant for MS with stents x2, atrial fibrillation chronically anticoagulated on Xarelto, hypertension, hyperlipidemia, and pacemaker who presented to the emergency department today with a complaint of sudden onset epigastric/chest discomfort that woke him from his sleep at approximately 2 AM. Patient describes the pain as heaviness that was nonradiating and lasted approximately 30 minutes. Patient had no other associated symptoms and denies alleviating or aggravating factors. Of note, the patient was seen in the emergency department yesterday and diagnosed with a UTI. He was discharged home with p.o. Ceftin. He denies continued urgency, frequency and dysuria though is also on Pyridium. Evaluation in the emergency department is unremarkable with normal CBC, chemistry, negative troponin, benign chest x-ray, and EKG demonstrating an atrial paced rhythm. He is referred to the hospitalist service for evaluation and management of the above-stated complaints and findings. Physical Exam Vital Signs: Temp Pulse Resp BP Pulse Ox 97.5 F 70 18 121/76 100 05/22/19 03:33 05/22/19 07:00 05/22/19 03:33 05/22/19 03:33 05/22/19 03:33 Intake & Output 05/21/19 05/22/19 05/23/19 06:59 06:59 06:59 Intake Total 750 Output Total 500 Balance 250 Weight 88.5 kg 83.5 kg Results Laboratory Results: 05/21/19 05:16 05/22/19 04:13 05/22/19 04:13 Sodium 137.0 Potassium 4.5 Chloride 104 Carbon Dioxide 24 Anion Gap 9 BUN 22 H Creatinine 1.10 Est GFR ( Amer) > 60 Est GFR (Non-Af Amer) > 60 Glucose 99 Calcium 9.7 Triglycerides 95 Cholesterol 116.11 LDL Cholesterol Direct 61 VLDL Cholesterol 19.0 HDL Cholesterol 40 05/21/19 05/21/19 05/21/19 05:16 05:16 06:01 Creatine Kinase Cancelled CK-MB (CK-2) Cancelled 1.65 Troponin I Cancelled < 0.012 05/21/19 05/21/19 05/21/19 06:01 12:12 18:19 Creatine Kinase 36 L CK-MB (CK-2) Troponin I < 0.012 < 0.012 05/22/19 00:15 Creatine Kinase CK-MB (CK-2) Troponin I < 0.012 Impressions: Chest X-Ray 05/21/19 06:29 IMPRESSION: No acute cardiopulmonary findings. Qualifiers - * PATIENT BEING DISCHARGED WITH ANY OF THE FOLLOWING DIAGNOSIS: No Acute Heart Failure - Is this a Heart Failure Patient?: No Plan Discharge Plan: Follow-up with primary care provider within 1 week. Follow-up with established education spec as scheduled. Complete your course of antibiotic therapy for treatment of your UTI. Return to the emergency department as needed for concerning symptoms. Time Spent: Greater than 30 Minutes
== END 2019-05-22 14:40 | disposition home or self-care (01) ==
LOC: ER 02:38 → EH 08:23 → 4N 15:17
PROVIDERS: ADMIT Internal Medicine; ATTEND Internal Medicine
DX: R07.89 Other chest pain (principal); N30.00 Acute cystitis without hematuria; I10 Essential (primary) hypertension; E78.5 Hyperlipidemia, unspecified; I48.91 Unspecified atrial fibrillation; R14.0 Abdominal distension (gaseous); E66.3 Overweight; I25.10 Atherosclerotic heart disease of native coronary artery without angina pectoris; I25.2 Old myocardial infarction; Z79.82 Long term (current) use of aspirin; Z79.899 Other long term (current) drug therapy; Z95.5 Presence of coronary angioplasty implant and graft; Z79.01 Long term (current) use of anticoagulants; Z95.810 Presence of automatic (implantable) cardiac defibrillator
CPT/HCPCS: 93005; 99285; 96361; 96365; 36415 ×2; 82553; 82550; 85025; 80048; 80053; 84484 ×2; 80061; 93017; 71045; 78452; 93010; G0378 ×3; A9500; J2785; A9270 ×11; J0696 ×2; J3490 ×2; J7060 ×2; J7030; Q9969

== ENCOUNTER 2019-07-23 05:20 | Emergency (ER) | payer MEDICARE, OTHER ==
--- NOTE | 2019-07-23 05:35 | ER Document Report ---
ED Medical Screen (RME) - General Chief Complaint: Abdominal Pain Stated Complaint: Lower abdominal pain Time Seen by Provider: 07/23/19 05:25 Primary Care Provider: WIL SWEENEY MD [Primary Care Provider] - Follow up as needed Notes: 84-year-old male comes by EMS for chief complaint of sharp pain in his lower abdomen worse on the left side, this woke him up from resting earlier, he states the pain started improving and now actually almost resolved. He denies nausea or vomiting, fever or chills. He states he has a new Dawson in place, he has had a Dawson catheter in place for over a week because of urinary retention/BPH, he states he is wondering if there is something wrong with his Dawson causing his abdominal pain. TRAVEL OUTSIDE OF THE [place] IN LAST 30 DAYS: No - Related Data Allergies/Adverse Reactions: No Known Allergies Allergy (Verified 07/23/19 05:26) Past Medical History - Past Medical History Cardiac Medical History: Reports: Hx Atrial Fibrillation, Hx Heart Attack, Hx Hypercholesterolemia, Hx Hypertension Renal/ Medical History: Denies: Hx Peritoneal Dialysis Past Surgical History: Reports: Hx Cardiac Catheterization, Hx Cardiac Surgery - Pacemaker defibrillator, Hx Coronary Stent Physical Exam - Vital signs Vitals: Temp Pulse Resp BP Pulse Ox 97.6 F 85 18 120/78 100 07/23/19 05:27 07/23/19 05:27 07/23/19 05:27 07/23/19 05:27 07/23/19 05:27 - Abdominal Tenderness: Tender - Tender in the mid to left lower abdomen and groin area with some wincing. No guarding. Remaining abdomen benign. - Genitourinary Inspection: Normal - Dawson catheter in place without obvious abnormality, this can be removed without discomfort, there is urine in the bag without blood. No: Blood at meatus, Penile discharge Tenderness: Nontender. No: Testicle tender, Epididymis tender Scrotum: Normal. No: Swelling, Redness Course - Re-evaluation Re-evalutation: I have greeted and performed a rapid initial assessment of this patient. A comprehensive ED assessment and evaluation of the patient, analysis of test results and completion of the medical decision making process will be conducted by additional ED providers. - Vital Signs Vital signs: Temp Pulse Resp BP Pulse Ox 97.6 F 85 18 120/78 100 07/23/19 05:27 07/23/19 05:27 07/23/19 05:27 07/23/19 05:27 07/23/19 05:27 Doctor's Discharge - Discharge Referrals: WIL SWEENEY MD [Primary Care Provider] - Follow up as needed
[2019-07-23 06:22] LABS: ABSOLUTE EOSINOPHILS # (AUTO) 0.1 10^3/uL (0.0-0.6); ABSOLUTE MONOCYTES (AUTO) 0.5 10^3/uL (0.1-1.4); ABSOLUTE NEUT (AUTO) 4.6 10^3/uL (1.7-8.2); BASOPHILS % (AUTO) 0.6 % (0-2); EOSINOPHILS % (AUTO) 1.7 % (0-6); HEMATOCRIT 31.7 % (37.9-51.0); HEMOGLOBIN 10.9 g/dL (13.5-17.0); LYMPHOCYTES % (AUTO) 15.9 % (13-45); MEAN CORPUSCULAR HEMOGLOBIN 28.9 pg (27.0-33.4); MEAN CORPUSCULAR HGB CONC 34.4 g/dL (32.0-36.0); MEAN CORPUSCULAR VOLUME 84 fl (80-97); MONOCYTES % (AUTO) 8.5 % (3-13); PLATELET COUNT 262 10^3/uL (150-450); RED BLOOD COUNT 3.78 10^6/uL (4.35-5.55); SEGMENTED NEUTROPHILS % (AUTO) 73.3 % (42-78); TOTAL CELLS COUNTED % (AUTO) 100 %; WHITE BLOOD COUNT 6.3 10^3/uL (4.0-10.5)
[2019-07-23 06:26] LABS: AMORPHOUS SEDIMENT,URINE TRACE /HPF; APPEARANCE,URINE CLOUDY; BILIRUBIN,URINE NEGATIVE (NEGATIVE); COLOR,URINE AMBER; GLUCOSE, URINE NEGATIVE (NEGATIVE); KETONES,URINE NEGATIVE (NEGATIVE); LEUKOCYTE ESTERASE,URINE NEGATIVE (NEGATIVE); NITRITE,URINE NEGATIVE (NEGATIVE); PROTEIN,URINE 30 mg/dL (NEGATIVE); URINE SPECIFIC GRAVITY 1.019; UROBILINOGEN,URINE NEGATIVE mg/dL (<2.0)
[2019-07-23 06:39] LABS: ALBUMIN 3.1 g/dL (3.5-5.0); ALKALINE PHOSPHATASE 65 U/L (38-126); ANION GAP 7 (5-19); ASPARTATE AMINO TRANSFERASE 37 U/L (17-59); BILIRUBIN,DIRECT 0.2 mg/dL (0.0-0.4); BILIRUBIN,TOTAL 1.3 mg/dL (0.2-1.3); BLOOD UREA NITROGEN 23 mg/dL (7-20); CALCIUM 9.5 mg/dL (8.4-10.2); CARBON DIOXIDE 26 mmol/L (22-30); CHLORIDE 104 mmol/L (98-107); GLUCOSE 94 mg/dL (75-110); POTASSIUM 3.9 mmol/L (3.6-5.0); TOTAL PROTEIN 5.4 g/dL (6.3-8.2)
--- NOTE | 2019-07-23 09:23 | RADIOLOGY REPORT (SQ) ---
EXAM DESCRIPTION: CT ABD/PELVIS ORAL ONLY COMPLETED DATE/TIME: 07/23/2019 9:06 am REASON FOR STUDY: abd pain, eval for stone COMPARISON: None. TECHNIQUE: CT scan of the abdomen and pelvis performed with oral contrast and no intravenous contras t. Images reviewed with lung, soft tissue, and bone windows. Reconstructed coronal and sagittal MPR i mages reviewed. All images stored on PACS. All CT scanners at this facility use dose modulation, iterative reconstruction, and/or weight based d osing when appropriate to reduce radiation dose to as low as reasonably achievable (ALARA). [facility]: Dose Right [facility]: CareDose [facility]: Dose Right [facility]: Teradose 4D [facility]: [place] RADIATION DOSE: CT Rad equipment meets quality standard of care and radiation dose reduction techniq ues were employed. CTDIvol: 9.1 mGy. DLP: 489 mGy-cm. mGy. LIMITATIONS: Artifact from right hip arthroplasty. FINDINGS: LOWER CHEST: Trace left pleural effusion. NON-CONTRASTED LIVER, SPLEEN, ADRENALS: Evaluation limited by lack of IV contrast. No identified sign ificant masses. PANCREAS: No masses. No peripancreatic inflammatory changes. GALLBLADDER: No identified stones by CT criteria. No inflammatory changes to suggest cholecystitis. RIGHT KIDNEY AND URETER: No suspicious masses. Assessment limited by lack of IV contrast. No signif icant calcifications. No hydronephrosis or hydroureter. LEFT KIDNEY AND URETER: No suspicious masses. Assessment limited by lack of IV contrast. 1 mm stone lower pole. No hydronephrosis or hydroureter. AORTA AND RETROPERITONEUM: No aneurysm. No retroperitoneal masses or adenopathy. BOWEL AND PERITONEAL CAVITY: No obvious masses or inflammatory changes. No free fluid. APPENDIX: Normal. PELVIS, BLADDER, AND ABDOMINAL WALL: Dawson catheter in urinary bladder. BONES: Nothing acute. OTHER: No other significant finding. IMPRESSION: Small nonobstructing left renal calculus. TECHNICAL DOCUMENTATION: JOB ID: [id number] Quality ID # [id number]: Final reports with documentation of one or more dose reduction techniques (e.g., Au tomated exposure control, adjustment of the mA and/or kV according to patient size, use of iterative reconstruction technique) 2010 [employer]- All Rights Reserved Reading location - IP/workstation name: [email or web address]
[2019-07-23 10:34] VITALS: BP 134/71
--- NOTE | 2019-07-23 14:38 | ER Document Report ---
Entered by MIKE SIERRA SCRIBE 07/23/19 1001 Acting as scribe for:DON RIGGS DO ED GI/ - General Chief Complaint: Abdominal Pain Stated Complaint: Lower abdominal pain Time Seen by Provider: 07/23/19 05:25 Primary Care Provider: WIL SWEENEY MD [Primary Care Provider] - Follow up as needed Notes: Patient is an 84-year-old male that presents to the emergency department today for a very vague complaint regarding his Dawson catheter. Patient had a Dawson catheter placed on 07/21/2019 at [facility] for prostatitis. Patient is on Cipro and is not missing medication. Patient states he woke up this morning it felt like his Dawson catheter was "coming loose or something". The patient has had no leakage around Dawson catheter in the bag it is filling up appropriately. Family states the patient's next urology appointment is on 07/30. TRAVEL OUTSIDE OF THE [place] IN LAST 30 DAYS: No - Related Data Allergies/Adverse Reactions: No Known Allergies Allergy (Verified 07/23/19 05:26) Past Medical History - General Information source: Patient - Social History Smoking Status: Never Smoker Chew tobacco use (# tins/day): Yes Frequency of alcohol use: None Drug Abuse: None Family History: Reviewed & Not Pertinent Patient has suicidal ideation: No Patient has homicidal ideation: No - Past Medical History Cardiac Medical History: Reports: Hx Atrial Fibrillation, Hx Heart Attack, Hx Hypercholesterolemia, Hx Hypertension Renal/ Medical History: Denies: Hx Peritoneal Dialysis Past Surgical History: Reports: Hx Cardiac Catheterization, Hx Cardiac Surgery - Pacemaker defibrillator, Hx Coronary Stent Review of Systems - Review of Systems Constitutional: No symptoms reported EENT: No symptoms reported Cardiovascular: No symptoms reported Respiratory: No symptoms reported Gastrointestinal: denies: Abdominal pain Genitourinary: See HPI, Other - blood coming out of penis. denies: Flank pain Male Genitourinary: No symptoms reported Musculoskeletal: No symptoms reported Skin: No symptoms reported Hematologic/Lymphatic: No symptoms reported Neurological/Psychological: No symptoms reported -: Yes All other systems reviewed and negative Physical Exam - Vital signs Vitals: Temp Pulse Resp BP Pulse Ox 97.6 F 85 18 120/78 100 07/23/19 05:27 07/23/19 05:27 07/23/19 05:27 07/23/19 05:27 07/23/19 05:27 Interpretation: Normal - General General appearance: Appears well, Alert - HEENT Head: Normocephalic, Atraumatic Eyes: Normal Pupils: PERRL - Respiratory Respiratory status: No respiratory distress Chest status: Nontender Breath sounds: Normal Chest palpation: Normal - Cardiovascular Rhythm: Regular Heart sounds: Normal auscultation Murmur: No - Abdominal Inspection: Normal Distension: No distension Bowel sounds: Normal Tenderness: Nontender Organomegaly: No organomegaly - Genitourinary Inspection: Normal, Other - Urinary catheter in place. - Back Back: Normal, Nontender - Extremities General upper extremity: Normal inspection, Nontender, Normal color, Normal ROM, Normal temperature General lower extremity: Normal inspection, Nontender, Normal color, Normal ROM, Normal temperature, Normal weight bearing. No: Chema's sign - Neurological Neuro grossly intact: Yes Cognition: Normal Orientation: AAOx4 Criss Coma Scale Eye Opening: Spontaneous [place] Coma Scale Verbal: Oriented Criss Coma Scale Motor: Obeys Commands [place] Coma Scale Total: 15 Speech: Normal Motor strength normal: LUE, RUE, LLE, RLE Sensory: Normal - Psychological Associated symptoms: Normal affect, Normal mood - Skin Skin Temperature: Warm Skin Moisture: Dry Skin Color: Normal Course - Re-evaluation Re-evalutation: 07/23/19 14:37 Patient is an 84-year-old male who is currently taking Cipro for urinary tract infection. Blood and bacteria in urine. Culture sent. No acute findings on blood work or CT abdomen pelvis. Patient has no complaints at this time and feels well. Vitals are stable. He will be discharged home and is to follow-up with his doctor when he is able. Return if any worsening or concerning symptoms. Stable for discharge. - Vital Signs Vital signs: Temp Pulse Resp BP Pulse Ox 97.4 F 70 12 134/71 H 100 07/23/19 10:29 07/23/19 10:29 07/23/19 10:29 07/23/19 10:29 07/23/19 10:29 - Laboratory Result Diagrams: 07/23/19 06:00 07/23/19 06:00 Laboratory results interpreted by me: 07/23/19 07/23/19 07/23/19 06:00 06:00 06:09 RBC 3.78 L Hgb 10.9 L Hct 31.7 L RDW 16.0 H Sodium 136.9 L BUN 23 H Total Protein 5.4 L Albumin 3.1 L Urine Protein 30 H Urine Blood LARGE H Urine Ascorbic Acid 40 H Discharge - Discharge Clinical Impression: Dawson catheter in place Hematuria Qualifiers: Hematuria type: gross Qualified Code(s): R31.0 - Gross hematuria Condition: Stable Disposition: HOME, SELF-CARE Instructions: Dawson Catheter Care ([facility]), Hematuria ([facility]) Additional Instructions: Please follow-up with the urologist as scheduled. There was a urine culture sent today. Someone will call you if the antibiotic needs to be changed. Referrals: WIL SWEENEY MD [Primary Care Provider] - Follow up as needed I personally performed the services described in the documentation, reviewed and edited the documentation which was dictated to the scribe in my presence, and it accurately records my words and actions.
== END 2019-07-23 10:38 | disposition home or self-care (01) ==
LOC: ER 05:20
DX: T83.098A Other mechanical complication of other urinary catheter, initial encounter (principal); R31.0 Gross hematuria; R10.30 Lower abdominal pain, unspecified; I10 Essential (primary) hypertension
CPT/HCPCS: 36415; 74176; 80053; 81001; 85025; 87086; 99284

== ENCOUNTER 2019-12-03 11:39 | Inpatient (IN) | payer MEDICARE, OTHER ==
[2019-12-03] MEDS ORDERED: NORMAL SALINE 1000 ML 1,000 ML IV ONE (14:19)
[2019-12-03 15:12] LABS: ABSOLUTE EOSINOPHILS # (AUTO) 0.1 10^3/uL (0.0-0.6); ABSOLUTE LYMPHOCYTES (AUTO) 0.9 10^3/uL (0.5-4.7); ABSOLUTE MONOCYTES (AUTO) 0.4 10^3/uL (0.1-1.4); ABSOLUTE NEUT (AUTO) 4.5 10^3/uL (1.7-8.2); BASOPHILS % (AUTO) 0.5 % (0-2); EOSINOPHILS % (AUTO) 1.2 % (0-6); HEMATOCRIT 37.2 % (37.9-51.0); HEMOGLOBIN 12.9 g/dL (13.5-17.0); LYMPHOCYTES % (AUTO) 15.8 % (13-45); MEAN CORPUSCULAR HEMOGLOBIN 28.7 pg (27.0-33.4); MEAN CORPUSCULAR HGB CONC 34.5 g/dL (32.0-36.0); MEAN CORPUSCULAR VOLUME 83 fl (80-97); MONOCYTES % (AUTO) 6.9 % (3-13); PLATELET COUNT 214 10^3/uL (150-450); RED BLOOD COUNT 4.49 10^6/uL (4.35-5.55); RED CELL DISTRIBUTION WIDTH 15.9 % (11.5-14.0); SEGMENTED NEUTROPHILS % (AUTO) 75.6 % (42-78); TOTAL CELLS COUNTED % (AUTO) 100 %
[2019-12-03 15:17] LABS: INTERNATIONAL RATION (INR) 1.82; PROTHROMBIN TIME 21.3 SEC (11.4-15.4)
--- NOTE | 2019-12-03 15:30 | RADIOLOGY REPORT (SQ) ---
EXAM DESCRIPTION: CHEST SINGLE VIEW COMPLETED DATE/TIME: 12/03/2019 3:18 pm REASON FOR STUDY: tachycardia COMPARISON: 05/21/2019. EXAM PARAMETERS: NUMBER OF VIEWS: One view. TECHNIQUE: Single frontal radiographic view of the chest acquired. RADIATION DOSE: NA LIMITATIONS: None. FINDINGS: LUNGS AND PLEURA: Left pleural effusion. Possible faint density in the retrocardiac left lung base. Right lung clear. MEDIASTINUM AND HILAR STRUCTURES: No masses. Contour normal. HEART AND VASCULAR STRUCTURES: Heart normal in size. Normal vasculature. BONES: No acute findings. HARDWARE: Pacemaker. OTHER: No other significant finding. IMPRESSION: LEFT PLEURAL EFFUSION. POSSIBLE ATELECTASIS OR INFILTRATE IN THE RETROCARDIAC LEFT LUNG BASE. TECHNICAL DOCUMENTATION: JOB ID: [id number] [employer]- All Rights Reserved Reading location - IP/workstation name: [email or web address]
[2019-12-03 15:31] LABS: ALBUMIN 3.6 g/dL (3.5-5.0); ALKALINE PHOSPHATASE 75 U/L (38-126); ANION GAP 8 (5-19); ASPARTATE AMINO TRANSFERASE 64 U/L (17-59); BILIRUBIN,DIRECT 0.3 mg/dL (0.0-0.4); BILIRUBIN,TOTAL 0.8 mg/dL (0.2-1.3); BLOOD UREA NITROGEN 14 mg/dL (7-20); CALCIUM 9.7 mg/dL (8.4-10.2); CARBON DIOXIDE 33 mmol/L (22-30); CHLORIDE 101 mmol/L (98-107); GLUCOSE 93 mg/dL (75-110); TOTAL PROTEIN 6.5 g/dL (6.3-8.2)
[2019-12-03 15:34] LABS: POTASSIUM 2.6 mmol/L (3.6-5.0)
--- NOTE | 2019-12-03 15:43 | EKG REPORT ---
SEVERITY:- ABNORMAL ECG - ATRIAL FIBRILLATION, V-RATE 127-149 LEFT BUNDLE BRANCH BLOCK : Confirmed by: Tracie Wilkinson MD 03-Dec-2019 15:42:58
--- NOTE | 2019-12-03 15:43 | EKG REPORT ---
SEVERITY:- ABNORMAL ECG - A-V DUAL-PACED RHYTHM WITH SOME INHIBITION NONSPECIFIC INTRAVENTRICULAR CONDUCTION DELAY NONSPECIFIC ST DEPRESSION : Confirmed by: Tracie Wilkinson MD 03-Dec-2019 15:43:07
[2019-12-03] MEDS ORDERED: POTASSIUM CHLORIDE 10 MEQ TABLET.ER PO ONE (16:21)
[2019-12-03] MEDS ORDERED: AMIODARONE HCL 150 MG in DEXTROSE 5%-WATER 100 ML IV ONE (17:30)
--- NOTE | 2019-12-03 17:37 | ER Document Report ---
ED General - General Chief Complaint: Low Blood Pressure Stated Complaint: BLOOD PRESSURE PROBLEM Time Seen by Provider: 12/03/19 14:06 Primary Care Provider: WIL SWEENEY MD [Primary Care Provider] - Follow up as needed TRAVEL OUTSIDE OF THE [place] IN LAST 30 DAYS: No - HPI Notes: Patient is an 84-year-old male with a known history of atrial fibrillation, pacer defibrillator, who presents to the emergency department for evaluation of dizziness/near syncope. He was doing his high step exercises at physical therapy today. He got very dizzy, sat down. His hands were trembling. Therapist was concerned that he was foaming at the mouth. He was awake and aware during this entire episode. The patient has had some intermittent low blood pressure over the last year. 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 His pacer defibrillator was interrogated on Saturday. He was told that he was having these rapid heart rate episodes. He is on amiodarone now, 200 mg daily. He is been taking his medications as prescribed. At this point, the patient has absolutely no symptoms. - Related Data Allergies/Adverse Reactions: No Known Allergies Allergy (Verified 07/23/19 05:26) Home Medications: Lexapro 5 mg daily, Xarelto 20 mg daily, Crestor 10 mg daily, Xalatan eyedrops 2.5 mg at night, amiodarone 200 mg daily Past Medical History - General Information source: Patient, Relative - Social History Smoking Status: Never Smoker Chew tobacco use (# tins/day): No Frequency of alcohol use: None Drug Abuse: None Family History: Reviewed & Not Pertinent Patient has suicidal ideation: No Patient has homicidal ideation: No - Past Medical History Cardiac Medical History: Reports: Hx Atrial Fibrillation, Hx Heart Attack, Hx Hypercholesterolemia, Hx Hypertension Renal/ Medical History: Denies: Hx Peritoneal Dialysis Past Surgical History: Reports: Hx Cardiac Catheterization, Hx Cardiac Surgery - Pacemaker defibrillator, Hx Coronary Stent Review of Systems - Review of Systems Constitutional: See HPI EENT: No symptoms reported Cardiovascular: See HPI Respiratory: No symptoms reported Gastrointestinal: No symptoms reported Genitourinary: No symptoms reported Musculoskeletal: No symptoms reported Skin: No symptoms reported Neurological/Psychological: No symptoms reported Physical Exam - Vital signs Vitals: Resp 16 12/03/19 11:48 - Notes Notes: Is a pleasant 83-year-old male who appears his stated age in no acute distress. Vital signs reviewed, please refer to chart. Head is normocephalic, atraumatic. Pupils equal round, reactive to light. Neck is supple without meningismus. Heart is regular rate and rhythm. Lungs are clear to auscultation bilaterally. Abdomen is soft, nontender, normoactive bowel sounds throughout. Extremities without cyanosis, clubbing. Posterior calves are nontender. Peripheral pulses are equal. Skin is warm and dry. Patient is awake, alert, neurological exam is nonfocal. Course - Re-evaluation Re-evalutation: 12/03/19 17:38 Patient presents to the emergency department for evaluation. On initial evaluation the patient's heart rate was in the 70s. He was placed on the engine monitor. During the course of his stay, the patient had a heart rate that went up to the 140s. His blood pressure remained stable. He seems to be in slow ventricular tachycardia. He was intermittently in and out of this throughout the course of his stay. During these episodes he had absolutely no chest pain, no shortness of breath, asymptomatic entirely. He would intermittently come out of this, but during the most recent course of this, he has been in sustained slow ventricular tachycardia with a rate of 145 bpm. Laboratory investigations were obtained and showed a marked hypokalemia. He was just recently started on Synthroid, although he is unsure as to the dose. His TSH was high. I spoke with the [employer] commercial representative, Renny. He was in [place] at the time. He did note slow VT with heart rate in the 150s since it was last interrogated just a few days ago. The settings are to where he would not be treated with an internal shock unless his heart rate was 188. He plans to come to the department and evaluate the patient, see if he can pace terminate the V. tach. Dr. Berkowitz came to the department, recommends magnesium as well. This will be ordered. Will contact medicine for admission. 12/03/19 18:03 I spoke with Lissy Olea, nurse practitioner regards to this patient. She was concerned that this patient was a more appropriate intensive care unit patient. I spoke with Dr. Sanchez. He will come and evaluate the patient. As of right now, patient's heart rate is 139, blood pressure 94/67. He remains stable. 12/03/19 18:36 Dr. Berkowitz remained in the department. He was able to pace terminate the patient slow V. tach. Following the procedure the patient's blood pressure normalized, his heart rate was 70. He remained stable throughout his stay. Based on this, he does not meet any ICU criteria. I spoke with Lissy Olea who will admit the patient to [facility]. - Vital Signs Vital signs: Temp Pulse Resp BP Pulse Ox 97.9 F 15 90/54 L 97 12/03/19 14:02 12/03/19 17:01 12/03/19 17:01 12/03/19 17:01 - Laboratory Result Diagrams: 12/03/19 12:00 12/03/19 12:00 Laboratory results interpreted by me: 12/03/19 12/03/19 12/03/19 12:00 12:00 12:00 Hgb 12.9 L Hct 37.2 L RDW 15.9 H PT 21.3 H Potassium 2.6 L* Carbon Dioxide 33 H Creatinine 1.26 H Est GFR (MDRD) Non-Af 55 L AST 64 H TSH 12/03/19 12:00 Hgb Hct RDW PT Potassium Carbon Dioxide Creatinine Est GFR (MDRD) Non-Af AST TSH 12.50 H - Diagnostic Test Radiology reviewed: Reports reviewed Radiology results interpreted by me: 12/03/19 17:42 Chest X-Ray 12/03/19 14:18 IMPRESSION: LEFT PLEURAL EFFUSION. POSSIBLE ATELECTASIS OR INFILTRATE IN THE RETROCARDIAC LEFT LUNG BASE. - EKG Interpretation by Me Additional EKG results interpreted by me: 12/03/19 17:42 Initial EKG showed AV pacing with a rate of 80 bpm. Right axis, IVCD, and nonspecific ST changes. Repeat EKG later showed slow ventricular tachycardia and a left bundle branch block with a rate of 138. Critical Care Note - Critical Care Note Total time excluding time spent on procedures (mins): 45 Discharge - Discharge Clinical Impression: Ventricular tachycardia (paroxysmal), Hypokalemia Condition: Stable Disposition: ADMITTED INPATIENT Admitting Provider: Emilie (Hospitalist) - Lissy Olea BROKE WORKER Unit Admitted: [facility] Referrals: WIL SWEENEY MD [Primary Care Provider] - Follow up as needed
[2019-12-03] MEDS ORDERED: AMIODARONE HCL INJ 150 MG/3 ML VIAL IV ONE (17:50)
[2019-12-03] MEDS ORDERED: DEXTROSE 5%-WATER 500 ML with AMIODARONE HCL 900 MG IV PRN ×2 (17:55)
[2019-12-03] MEDS: MAGNESIUM SULFATE/D5W 1 GM/100 ML RTUPB IV SCH ×2 (18:15→19:34)
[2019-12-03] MEDS: POTASSI CL 20 MEQ/50 ML RIDER 20 MEQ/50 ML RTUPB IV SCH ×2 (18:26→20:16)
[2019-12-03] MEDS ORDERED: ACETAMINOPHEN 325 MG TABLET PO PRN (18:57)
[2019-12-03] MEDS ORDERED: MAG HYDROX/AL HYDROX/SIMETH SUSP 30 ML UDCUP PO PRN (18:57)
--- NOTE | 2019-12-03 19:25 | PDOC CONSULTATION ---
Consultation Consult Date: 12/03/19 Attending physician:: VELMA FOSTER Provider Consulted: ISADORA MCCARTNEY Consult reason:: Hemodynamic instability with malfunctioning pacemaker History of Present Illness Admission Date/PCP: WIL SWEENEY MD History of Present Illness: PARAG HERRERA is a 84 year old male with a known history of atrial fibrillation with AICD who presents to the emergency department for evaluation of dizziness/near syncope. He was doing physical therapy today when he got very dizzy. He sat down trembling but he was awake and aware during this entire episode. 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 His pacer defibrillator was interrogated on Saturday. He was told that he was having these rapid heart rate episodes. He is on amiodarone now, 200 mg daily. He is been taking his medications as prescribed. Despite being in V-tach with a rate in the 140's, he was asymptomatic at the time of this exam. Past Medical History Cardiac Medical History: Reports: Atrial Fibrillation, Myocardial Infarction, Hyperlipidema, Hypertension Past Surgical History Past Surgical History: Reports: Cardiac Catheterization, Coronary Stent Social History Smoking Status: Never Smoker Electronic Cigarette use?: No Frequency of Alcohol Use: None Hx Recreational Drug Use: No Hx Prescription Drug Abuse: No Family History Family History: Reviewed & Not Pertinent Parental Family History Reviewed: No Children Family History Reviewed: No Sibling(s) Family History Reviewed.: No Medication/Allergy Allergies/Adverse Reactions: No Known Allergies Allergy (Verified 07/23/19 05:26) Physical Exam Vital Signs: Temp Pulse Resp BP Pulse Ox 97.9 F 15 90/54 L 97 12/03/19 14:02 12/03/19 17:01 12/03/19 17:01 12/03/19 17:01 Intake & Output 12/02/19 12/03/19 12/04/19 06:59 06:59 06:59 Intake Total 1000 Balance 1000 Weight 83.3 kg General appearance: PRESENT: no acute distress, well-developed, well-nourished Head exam: PRESENT: atraumatic, normocephalic Eye exam: PRESENT: EOMI, PERRLA. ABSENT: nystagmus, scleral icterus Ear exam: PRESENT: normal external ear exam Mouth exam: PRESENT: moist Neck exam: PRESENT: full ROM Respiratory exam: PRESENT: symmetrical, unlabored. ABSENT: accessory muscle use, retraction Cardiovascular exam: PRESENT: irregular rhythm, tachycardia Vascular exam: PRESENT: normal capillary refill GI/Abdominal exam: PRESENT: soft. ABSENT: tenderness Rectal exam: PRESENT: deferred Extremities exam: PRESENT: full ROM Musculoskeletal exam: PRESENT: ambulatory, full ROM Neurological exam: PRESENT: alert, awake, oriented to person, oriented to place, oriented to time, oriented to situation, CN II-XII grossly intact Skin exam: PRESENT: dry, warm Results Laboratory Results: 12/03/19 12:00 12/03/19 12:00 12/03/19 12/03/19 12/03/19 12:00 12:00 12:00 WBC 6.0 RBC 4.49 Hgb 12.9 L Hct 37.2 L MCV 83 MCH 28.7 MCHC 34.5 RDW 15.9 H Plt Count 214 Seg Neutrophils % 75.6 Sodium 142.4 Potassium 2.6 L* Chloride 101 Carbon Dioxide 33 H Anion Gap 8 BUN 14 Creatinine 1.26 H Est GFR ( Amer) > 60 Glucose 93 Calcium 9.7 Magnesium Total Bilirubin 0.8 AST 64 H Alkaline Phosphatase 75 Total Protein 6.5 Albumin 3.6 TSH 12.50 H 12/03/19 12:00 WBC RBC Hgb Hct MCV MCH MCHC RDW Plt Count Seg Neutrophils % Sodium Potassium Chloride Carbon Dioxide Anion Gap BUN Creatinine Est GFR ( Amer) Glucose Calcium Magnesium 2.1 Total Bilirubin AST Alkaline Phosphatase Total Protein Albumin TSH 12/03/19 12:00 Troponin I < 0.012 Impressions: Chest X-Ray 12/03/19 14:18 IMPRESSION: LEFT PLEURAL EFFUSION. POSSIBLE ATELECTASIS OR INFILTRATE IN THE RETROCARDIAC LEFT LUNG BASE. Assessment & Plan - Diagnosis (1) Hypokalemia Is this a current diagnosis for this admission?: Yes (2) Ventricular tachycardia (paroxysmal) Is this a current diagnosis for this admission?: Yes (3) Atrial fibrillation Is this a current diagnosis for this admission?: Yes - Time Time Spent: 30 to 50 Minutes Total Critical Time (Minutes): 0 Medications reviewed and adjusted accordingly: Yes Anticipated discharge: Home Within: within 48 hours - Inpatient Certification Based on my medical assessment, after consideration of the patient's comorbidities, presenting symptoms, or acuity I expect that the services needed warrant INPATIENT care.: Yes I certify that my determination is in accordance with my understanding of Medicare's requirements for reasonable and necessary INPATIENT services [42 CFR 412.3e].: Yes - Plan Summary Plan Summary: Patient seen and evaluated in the ER with cardiology. Initially there was concern for hemodynamic instabilty that would require ICU admission. The patient was profoundly hypokalemic (2.6) and unfortunately had a significant arrhythmia that was lower in rate than the threshhold of his pacemaker. Cardiol usha was ultimately able to manipulate the AICD/pacer and return him to a normal rate and rhythm. With return of a normal rate he also had normal blood pressure in the 120's. Aggressive correction of the potassium should help stabilize the heart and the patient is appropriate for IMCU or telemetry unit placement. No need for ICU at this time.
--- NOTE | 2019-12-03 20:29 | PDOC CONSULTATION ---
Consultation Consult Date: 12/03/19 Provider Consulted: VELMA FOSTER - [place] Consult reason:: Ventricular tachycardia History of Present Illness Admission Date/PCP: 12/03/19 18:54 WIL SWEENEY MD Patient complains of: Fatigue History of Present Illness: PARAG HERRERA is a 84 year old male With the following active problems 1. Coronary artery disease 2. Atrial fibrillation 3. Left-sided Medtronic DC ICD 4. Systemic hypertension 5. Dyslipidemia 6. Congestive heart failure Patient presented the emergency room with complaints of fatigue. Initial rhythm was AV paced at 80 bpm. Subsequently patient was found to have brief spurts of ventricular tachycardia and then later on was in sustained ventricular tachycardia at a rate of approximately 140-145 bpm. Patient was hemodynamically stable and continued to mentate without any difficulty. I was asked to evaluate the patient. I was at the bedside. Patient did not mention any chest pain or discomfort but mentioned some fatigue. He was found to be profoundly hypokalemic with a potassium of 2.6. Replacements have been started for this electrolyte abnormality. Past Medical History Cardiac Medical History: Reports: Atrial Fibrillation, Myocardial Infarction, Hyperlipidema, Hypertension Past Surgical History Past Surgical History: Reports: Cardiac Catheterization, Coronary Stent Social History Smoking Status: Never Smoker Electronic Cigarette use?: No Frequency of Alcohol Use: None Hx Recreational Drug Use: No Hx Prescription Drug Abuse: No Family History Family History: Reviewed & Not Pertinent Parental Family History Reviewed: No - No familial illnesses Children Family History Reviewed: NA Sibling(s) Family History Reviewed.: NA Medication/Allergy Allergies/Adverse Reactions: No Known Allergies Allergy (Verified 07/23/19 05:26) Physical Exam Vital Signs: Temp Pulse Resp BP Pulse Ox 97.9 F 14 108/73 93 12/03/19 14:02 12/03/19 18:36 12/03/19 18:36 12/03/19 18:36 Intake & Output 12/02/19 12/03/19 12/04/19 06:59 06:59 06:59 Intake Total 1000 Balance 1000 Weight 83.3 kg General appearance: PRESENT: no acute distress, cooperative Head exam: PRESENT: atraumatic, normocephalic Eye exam: PRESENT: EOMI Mouth exam: PRESENT: moist Cardiovascular exam: PRESENT: RRR, +S1, +S2 Pulses: PRESENT: normal radial pulses GI/Abdominal exam: PRESENT: soft Rectal exam: PRESENT: deferred Musculoskeletal exam: PRESENT: normal inspection Neurological exam: PRESENT: alert, awake, oriented to person, oriented to place, oriented to time, oriented to situation Psychiatric exam: PRESENT: appropriate affect Skin exam: PRESENT: intact, normal color Results Laboratory Results: 12/03/19 12:00 12/03/19 12:00 12/03/19 12/03/19 12/03/19 12:00 12:00 12:00 WBC 6.0 RBC 4.49 Hgb 12.9 L Hct 37.2 L MCV 83 MCH 28.7 MCHC 34.5 RDW 15.9 H Plt Count 214 Seg Neutrophils % 75.6 Sodium 142.4 Potassium 2.6 L* Chloride 101 Carbon Dioxide 33 H Anion Gap 8 BUN 14 Creatinine 1.26 H Est GFR ( Amer) > 60 Glucose 93 Calcium 9.7 Magnesium Total Bilirubin 0.8 AST 64 H Alkaline Phosphatase 75 Total Protein 6.5 Albumin 3.6 TSH 12.50 H 12/03/19 12:00 WBC RBC Hgb Hct MCV MCH MCHC RDW Plt Count Seg Neutrophils % Sodium Potassium Chloride Carbon Dioxide Anion Gap BUN Creatinine Est GFR ( Amer) Glucose Calcium Magnesium 2.1 Total Bilirubin AST Alkaline Phosphatase Total Protein Albumin TSH 12/03/19 12:00 Troponin I < 0.012 EKG Comments: Twelve-lead EKG 12/03/2019. 1414 hrs. Independently reviewed by me. Ventricular tachycardia 138 bpm Twelve-lead EKG 12/03/2019 1146 independently reviewed by me. AV paced 80 bpm Medtronic ICD was interrogated Presently rhythm is ventricular tachycardia at about 140 bpm. Noninvasive program stimulation was performed at the bedside. Presenting rhythm-ventricular tachycardia 140 bpm. Approximately 430 ms-average cycle length. Initially we attempted 88% burst pacing for 8-14 pulses at 6 V and 1.5 ms pulse width. Multiple attempts were made. The tachycardia persisted. We did burst pacing all the way down to 81% and this did not help either. Subsequently we changed strategy to ramp 81% with 10 ms decrement. This was successful finally in terminating the arrhythmia. At this time his rhythm was a sensed V sense Impressions: Chest X-Ray 12/03/19 14:18 IMPRESSION: LEFT PLEURAL EFFUSION. POSSIBLE ATELECTASIS OR INFILTRATE IN THE RETROCARDIAC LEFT LUNG BASE. Status: Image reviewed by me - Left pleural effusion. Atelectasis. Left. ICD and leads noted. Assessment & Plan - Diagnosis (1) Ventricular tachycardia (paroxysmal) Is this a current diagnosis for this admission?: Yes Plan: Monomorphic ventricular tachycardia at about 140 bpm for 30 ms below the cut off for treatment as programmed for this device. Hemodynamically stable with this rhythm. Patient was started on intravenous amiodarone bolus. Patient received supplemental potassium for correction of hypokalemia. Noninvasive program stimulation was performed at the bedside with precautions for defibrillation should the VT degenerate into ventricular fibrillation Presenting rhythm was ventricular tachycardia-ARVS at 140 bpm. VT cycle length was approximately 430 ms Initially burst pacing at 88% cycle length was performed for 8 pulses, 6 V at 1.5 ms. We will cycle length all the way down to 81% and also in up to 92%. This was unsuccessful in terminating the tachycardia. Subsequently we shifted to ramp strategy. 81% ramp with 10 ms intervals for decrement was tried twice for 8 pulses and then 12 pulses and this was successful. Device was reprogrammed to institute a third tier ventricular tachycardia from 130 bpm with ATP programmed as above consisting of ramp followed by a sequence of burst followed by seconds of ramp and then shocks starting at 10 J. At the end of the study the patient's rhythm was a paced V paced at 70 bpm. His underlying rhythm is sinus bradycardia at about 52 bpm a sensed V sense He has had multiple episodes of ventricular tachycardia at a slow rate and also the past of 8 which has been appropriately treated. One shock which was successful also. Normal device function. Patient will be admitted for overnight observation. His hypokalemia will be corrected. Presently no change in pharmacotherapy is anticipated (2) Hypokalemia Is this a current diagnosis for this admission?: Yes Plan: Profoundly hypokalemic. We will correct hypokalemia Oral as well as intravenous potassium is being administered. Supplemental magnesium was given empirically as the patient was in ventricular tachycardia. - Notes Notes: Ventricular tachycardia Slow monomorphic ventricular tachycardia at a cycle length of about 430 ms. Noninvasive programmed stimulation with burst pacing from the RV failed to terminate the arrhythmia. We used anywhere from 81% to 88% of the cycle length. We used 8-14 pulses with an output of 6 V at 1.5 ms Subsequently ramp 81% with 10 ms decrement with successful in terminating the arrhythmia. 1. Ventricular tachycardia-patient received intravenous amiodarone 150 mg bolus. 2. Continue oral amiodarone therapy 3. Profound hypokalemia with potassium of 2.6 mEq/L. Patient requires at least 120 mEq of potassium and we have to check the potassium level at least every 2-4 hours to make sure hypokalemia is corrected. 4. Empiric magnesium 2 g IV 5. Beta-blockade 6. Overnight observation on telemetry 7. ICD will be reprogrammed to encompass the slow ventricular tachycardia and treatment. Would preferably use ATP with ramp which seemed to work. With ATP is exhausted patient may require shocks to rescue. 8. Since arrhythmia occurred in the setting of profound hypokalemia do not feel strongly about altering medical therapy at this point. Presentation is nonischemic.
[2019-12-03] MEDS ORDERED: DOCUSATE SODIUM 100 MG CAPSULE PO ONE (23:00)
[2019-12-03] MEDS ORDERED: MIRTAZAPINE 15 MG TABLET PO ONE (23:15)
[2019-12-03] MEDS ORDERED: ATORVASTATIN CALCIUM 10 MG TABLET PO ONE (23:15)
[2019-12-03] MEDS ORDERED: FLUDROCORTISONE ACETATE 0.1 MG TABLET PO ONE (23:15)
[2019-12-04] MEDS ORDERED: FLUDROCORTISONE ACETATE 0.1 MG TABLET ONE ×2 (01:08→05:24)
--- NOTE | 2019-12-04 05:14 | PDOC H&P ---
History of Present Illness Admission Date/PCP: 12/03/19 18:54 WIL SWEENEY MD Patient complains of: Fatigue History of Present Illness: PARAG HERRERA is a 84 year old male with a past medical history of coronary artery disease, atrial fibrillation, left-sided AICD, congestive heart failure, dyslipidemia and hypotension on Florinef. Patient presents with 2 days of fatigue EKG reveals AV paced rhythm with episodes of nonsustained V. tach then becoming sustained at 145 bpm without ICD intervention. Potassium of 2.6. He receives a 1 L normal saline bolus, magnesium and potassium repletion followed by IV amiodarone resulting in a dual AV paced rhythm. He is seen at bedside by cardiology and Medtr[employer]. Adjustments to AICD are programmed and he is referred to the hospitalist for observation. He denies chest pain, previous episode, recent change in medications or diarrhea. Past Medical History Cardiac Medical History: Reports: Atrial Fibrillation, Myocardial Infarction, Hyperlipidema, Hypertension Past Surgical History Past Surgical History: Reports: Cardiac Catheterization, Coronary Stent Social History Information Source: Patient, [facility] Records Smoking Status: Never Smoker Electronic Cigarette use?: No Frequency of Alcohol Use: None Hx Recreational Drug Use: No Drugs: None Hx Prescription Drug Abuse: No - Advance Directive Resuscitation Status: Full Code Family History Family History: Hypertension Parental Family History Reviewed: Yes Children Family History Reviewed: Yes Sibling(s) Family History Reviewed.: Yes Medication/Allergy Home Medications: Amiodarone HCl [Cordarone 200 mg Tablet] 200 mg PO DAILY 12/03/19 Atorvastatin Calcium [Lipitor 10 mg Tablet] 10 mg PO QHS 12/03/19 Celecoxib [Celebrex] 200 mg PO Q12 12/03/19 Docusate Sodium [Colace 100 mg Capsule] 100 mg PO Q12 12/03/19 Escitalopram Oxalate [Lexapro] 20 mg PO QAM 12/03/19 Ferrous Sulfate [Feosol] 325 mg PO DAILY 12/03/19 Fludrocortisone Acetate [Florinef 0.1 mg Tablet] 0.1 mg PO Q12 12/03/19 Latanoprost [Xalatan 0.005% Oph Soln 2.5 ml] 1 drop OU DAILY 12/03/19 Levothyroxine Sodium [Synthroid 50 Mcg Tablet] 50 mcg PO DAILY 12/03/19 Magnesium Oxide [Magox] 400 mg PO DAILY 12/03/19 Mirtazapine [Remeron 15 mg Tablet] 15 mg PO QHS 12/03/19 Rivaroxaban [Xarelto] 20 mg PO DAILY 12/03/19 Allergies/Adverse Reactions: No Known Allergies Allergy (Verified 07/23/19 05:26) Review of Systems Constitutional: ABSENT: chills, fever(s), headache(s), weight gain, weight loss Eyes: ABSENT: visual disturbances Ears: ABSENT: hearing changes Cardiovascular: ABSENT: chest pain, dyspnea on exertion, edema, orthropnea, palpitations Respiratory: ABSENT: cough, hemoptysis Gastrointestinal: ABSENT: abdominal pain, constipation, diarrhea, hematemesis, hematochezia, nausea, vomiting Genitourinary: ABSENT: dysuria, hematuria Musculoskeletal: ABSENT: joint swelling Integumentary: ABSENT: rash, wounds Neurological: ABSENT: abnormal gait, abnormal speech, confusion, dizziness, focal weakness, syncope Psychiatric: ABSENT: anxiety, depression, homidical ideation, suicidal ideation Endocrine: ABSENT: cold intolerance, heat intolerance, polydipsia, polyuria Hematologic/Lymphatic: ABSENT: easy bleeding, easy bruising Physical Exam Vital Signs: Temp Pulse Resp BP Pulse Ox 97.6 F 70 16 132/82 H 97 12/04/19 03:36 12/04/19 03:36 12/04/19 03:36 12/04/19 03:36 12/04/19 03:36 Intake & Output 12/02/19 12/03/19 12/04/19 11:59 11:59 11:59 Intake Total 1550 Balance 1550 Weight 83.3 kg 86.7 kg General appearance: PRESENT: no acute distress, well-developed, well-nourished Head exam: PRESENT: atraumatic, normocephalic Eye exam: PRESENT: conjunctiva pink, EOMI, PERRLA. ABSENT: scleral icterus Ear exam: PRESENT: normal external ear exam Mouth exam: PRESENT: moist, tongue midline Neck exam: ABSENT: carotid bruit, JVD, lymphadenopathy, thyromegaly Respiratory exam: PRESENT: clear to auscultation clary. ABSENT: rales, rhonchi, wheezes Cardiovascular exam: PRESENT: RRR. ABSENT: diastolic murmur, rubs, systolic murmur Pulses: PRESENT: normal dorsalis pedis pul Vascular exam: PRESENT: normal capillary refill GI/Abdominal exam: PRESENT: normal bowel sounds, soft. ABSENT: distended, guarding, mass, organolmegaly, rebound, tenderness Rectal exam: PRESENT: deferred Extremities exam: PRESENT: full ROM. ABSENT: calf tenderness, clubbing, pedal edema Neurological exam: PRESENT: alert, awake, oriented to person, oriented to place, oriented to time, oriented to situation, CN II-XII grossly intact. ABSENT: motor sensory deficit Psychiatric exam: PRESENT: appropriate affect, normal mood. ABSENT: homicidal ideation, suicidal ideation Skin exam: PRESENT: dry, intact, warm. ABSENT: cyanosis, rash Results Laboratory Results: 12/03/19 12:00 12/03/19 12:00 12/03/19 12/03/19 12/03/19 12:00 12:00 12:00 WBC 6.0 RBC 4.49 Hgb 12.9 L Hct 37.2 L MCV 83 MCH 28.7 MCHC 34.5 RDW 15.9 H Plt Count 214 Seg Neutrophils % 75.6 Sodium 142.4 Potassium 2.6 L* Chloride 101 Carbon Dioxide 33 H Anion Gap 8 BUN 14 Creatinine 1.26 H Est GFR ( Amer) > 60 Glucose 93 Calcium 9.7 Magnesium Total Bilirubin 0.8 AST 64 H Alkaline Phosphatase 75 Total Protein 6.5 Albumin 3.6 TSH 12.50 H 12/03/19 12:00 WBC RBC Hgb Hct MCV MCH MCHC RDW Plt Count Seg Neutrophils % Sodium Potassium Chloride Carbon Dioxide Anion Gap BUN Creatinine Est GFR ( Amer) Glucose Calcium Magnesium 2.1 Total Bilirubin AST Alkaline Phosphatase Total Protein Albumin TSH 12/03/19 12/03/19 12/04/19 12:00 19:38 01:02 Troponin I < 0.012 0.051 0.746 Impressions: Chest X-Ray 12/03/19 14:18 IMPRESSION: LEFT PLEURAL EFFUSION. POSSIBLE ATELECTASIS OR INFILTRATE IN THE RETROCARDIAC LEFT LUNG BASE. Assessment and Plan - Diagnosis (1) Hypokalemia Is this a current diagnosis for this admission?: Yes Plan: Secondary to Florinef, unclear duration of treatment with Florinef will continue and otherwise replace potassium orally 40 mg twice daily. Follow-up chemistry (2) Ventricular tachycardia (paroxysmal) Is this a current diagnosis for this admission?: Yes Plan: Secondary to #1, AICD adjustments made. Follow-up telemetry (3) Atrial fibrillation Is this a current diagnosis for this admission?: Yes Plan: Rate controlled, continue Xarelto - Time Time Spent with patient: 25-34 minutes - Inpatient Certification Medical Necessity: Need Close Monitoring Due to Risk of Patient Decompensation
[2019-12-04] MEDS: FLUDROCORTISONE ACETATE 0.1 MG TABLET PO SCH ×2 (06:18→17:27)
[2019-12-04 06:27] LABS: ABSOLUTE EOSINOPHILS # (AUTO) 0.1 10^3/uL (0.0-0.6); ABSOLUTE LYMPHOCYTES (AUTO) 1.1 10^3/uL (0.5-4.7); ABSOLUTE MONOCYTES (AUTO) 0.4 10^3/uL (0.1-1.4); ABSOLUTE NEUT (AUTO) 3.8 10^3/uL (1.7-8.2); BASOPHILS % (AUTO) 0.7 % (0-2); HEMATOCRIT 33.4 % (37.9-51.0); HEMOGLOBIN 11.5 g/dL (13.5-17.0); LYMPHOCYTES % (AUTO) 20.1 % (13-45); MEAN CORPUSCULAR HEMOGLOBIN 28.6 pg (27.0-33.4); MEAN CORPUSCULAR HGB CONC 34.5 g/dL (32.0-36.0); MEAN CORPUSCULAR VOLUME 83 fl (80-97); MONOCYTES % (AUTO) 7.1 % (3-13); PLATELET COUNT 183 10^3/uL (150-450); RED BLOOD COUNT 4.04 10^6/uL (4.35-5.55); RED CELL DISTRIBUTION WIDTH 15.8 % (11.5-14.0); SEGMENTED NEUTROPHILS % (AUTO) 71.1 % (42-78); TOTAL CELLS COUNTED % (AUTO) 100 %; WHITE BLOOD COUNT 5.3 10^3/uL (4.0-10.5)
[2019-12-04 06:54] LABS: BLOOD UREA NITROGEN 12 mg/dL (7-20); CALCIUM 8.8 mg/dL (8.4-10.2); GLUCOSE 81 mg/dL (75-110)
[2019-12-04 06:59] LABS: CARBON DIOXIDE 33 mmol/L (22-30); CHLORIDE 106 mmol/L (98-107)
[2019-12-04 07:08] LABS: ANION GAP 4 (5-19)
[2019-12-04 07:10] LABS: POTASSIUM 2.5 mmol/L (3.6-5.0)
[2019-12-04] MEDS: ESCITALOPRAM OXALATE 10 MG TABLET PO SCH (08:27)
[2019-12-04] MEDS: POTASSI CL 20 MEQ/50 ML RIDER 20 MEQ/50 ML RTUPB IV SCH ×2 (08:27→09:58)
[2019-12-04] MEDS: RIVAROXABAN 10 MG TABLET PO SCH (09:57)
[2019-12-04] MEDS: DOCUSATE SODIUM 100 MG CAPSULE PO SCH ×2 (09:57→21:15)
[2019-12-04] MEDS: LEVOTHYROXINE SODIUM 0.05 MG TABLET PO SCH (09:57)
[2019-12-04] MEDS: MAGNESIUM OXIDE 400 MG TABLET PO SCH (09:57)
[2019-12-04] MEDS: FERROUS SULFATE 325 MG TABLET PO SCH (09:58)
[2019-12-04] MEDS: POTASSIUM CHLORIDE 10 MEQ TABLET.ER PO SCH ×2 (09:58→21:15)
[2019-12-04] MEDS ORDERED: LATANOPROST 0.005% OPH SOLN 2.5 ML OU SCH (10:00)
--- NOTE | 2019-12-04 10:44 | PDOC PROGRESS REPORT ---
Subjective Progress Note for:: 12/04/19 Subjective:: Patient seen. Resting. No more VT Reason For Visit: V TAC HYPOKALEMIA Physical Exam Vital Signs: Temp Pulse Resp BP Pulse Ox 97.6 F 71 17 130/80 H 98 12/04/19 07:46 12/04/19 07:46 12/04/19 07:46 12/04/19 07:46 12/04/19 07:46 Intake & Output 12/03/19 12/04/19 12/05/19 06:59 06:59 06:59 Intake Total 1750 38 Balance 1750 38 Weight 86.3 kg 86.5 kg General appearance: PRESENT: no acute distress Head exam: PRESENT: atraumatic, normocephalic Respiratory exam: PRESENT: unlabored Skin exam: PRESENT: normal color Results Laboratory Results: 12/04/19 05:39 12/04/19 05:39 12/03/19 12/03/19 12/03/19 12:00 12:00 12:00 WBC 6.0 RBC 4.49 Hgb 12.9 L Hct 37.2 L MCV 83 MCH 28.7 MCHC 34.5 RDW 15.9 H Plt Count 214 Seg Neutrophils % 75.6 Sodium 142.4 Potassium 2.6 L* Chloride 101 Carbon Dioxide 33 H Anion Gap 8 BUN 14 Creatinine 1.26 H Est GFR ( Amer) > 60 Glucose 93 Calcium 9.7 Magnesium Total Bilirubin 0.8 AST 64 H Alkaline Phosphatase 75 Total Protein 6.5 Albumin 3.6 TSH 12.50 H 12/03/19 12/04/19 12/04/19 12:00 05:39 05:39 WBC 5.3 RBC 4.04 L Hgb 11.5 L Hct 33.4 L MCV 83 MCH 28.6 MCHC 34.5 RDW 15.8 H Plt Count 183 Seg Neutrophils % 71.1 Sodium 143.1 Potassium 2.5 L* Chloride 106 Carbon Dioxide 33 H Anion Gap 4 L BUN 12 Creatinine 1.08 Est GFR ( Amer) > 60 Glucose 81 Calcium 8.8 Magnesium 2.1 2.3 Total Bilirubin AST Alkaline Phosphatase Total Protein Albumin TSH 12/03/19 12/03/19 12/04/19 12:00 19:38 01:02 Troponin I < 0.012 0.051 0.746 12/04/19 05:39 Troponin I 0.806 Impressions: Chest X-Ray 12/03/19 14:18 IMPRESSION: LEFT PLEURAL EFFUSION. POSSIBLE ATELECTASIS OR INFILTRATE IN THE RETROCARDIAC LEFT LUNG BASE. Assessment & Plan - Diagnosis (1) Ventricular tachycardia (paroxysmal) Is this a current diagnosis for this admission?: Yes Plan: VT slow at 140 bpm Pace terminated Ramp 81% 10 ms. Medtronic DC ICD reprogrammed with three zone programming with ATP and shocks in the new zone Continue oral Amiodarone Correcting hypokalemia Out patient follow up (2) Hypokalemia Is this a current diagnosis for this admission?: Yes Plan: Replacing K+ Check Mag as well
--- NOTE | 2019-12-04 13:31 | PDOC PROGRESS REPORT ---
Subjective Progress Note for:: 12/04/19 Subjective:: The patient is an 84-year-old male with a past medical history of atrial fibrillation, NM, hypertension, hyperlipidemia, left-sided AICD, and hypotension on Florinef who was admitted 12/03/2019 for hyperkalemia resulting in ventricular tachycardia with underlying atrial fibrillation. Patient was seen on morning rounds with his present. He is found resting in bed, comfortably, on room air. He reports that he is feeling well today. He has been ambulatory to the restroom without dizziness, lightheadedness, generalized weakness. He specifically denies chest pain and palpitations. He further denies fever, orthopnea, dyspnea, abdominal pain, nausea and vomi ting. He has no questions or concerns at this time. No concerns per nursing. Reason For Visit: V TAC HYPOKALEMIA Physical Exam Vital Signs: Temp Pulse Resp BP Pulse Ox 97.8 F 70 17 118/67 96 12/04/19 11:16 12/04/19 11:16 12/04/19 11:16 12/04/19 11:16 12/04/19 11:16 Intake & Output 12/03/19 12/04/19 12/05/19 06:59 06:59 06:59 Intake Total 1750 88 Balance 1750 88 Weight 86.3 kg 86.5 kg General appearance: PRESENT: no acute distress, cooperative, well-developed, well-nourished - Overweight Head exam: PRESENT: atraumatic, normocephalic Eye exam: PRESENT: conjunctiva pink, EOMI, PERRLA. ABSENT: scleral icterus Ear exam: PRESENT: normal external ear exam Mouth exam: PRESENT: moist, tongue midline Neck exam: ABSENT: carotid bruit, JVD, lymphadenopathy, thyromegaly Respiratory exam: PRESENT: clear to auscultation clary, symmetrical, unlabored. ABSENT: rales, rhonchi, wheezes Cardiovascular exam: PRESENT: RRR, +S1, +S2. ABSENT: diastolic murmur, rubs, systolic murmur Pulses: PRESENT: normal dorsalis pedis pul Vascular exam: PRESENT: normal capillary refill GI/Abdominal exam: PRESENT: normal bowel sounds, soft. ABSENT: distended, guarding, mass, organolmegaly, rebound, tenderness Rectal exam: PRESENT: deferred Extremities exam: PRESENT: full ROM. ABSENT: calf tenderness, clubbing, pedal edema Musculoskeletal exam: PRESENT: ambulatory Neurological exam: PRESENT: alert, awake, oriented to person, oriented to place, oriented to time, oriented to situation, CN II-XII grossly intact. ABSENT: motor sensory deficit Psychiatric exam: PRESENT: appropriate affect, normal mood. ABSENT: homicidal ideation, suicidal ideation Skin exam: PRESENT: dry, intact, warm. ABSENT: cyanosis, rash Results Laboratory Results: 12/04/19 05:39 12/04/19 05:39 12/03/19 12/03/19 12/03/19 12:00 12:00 12:00 WBC 6.0 RBC 4.49 Hgb 12.9 L Hct 37.2 L MCV 83 MCH 28.7 MCHC 34.5 RDW 15.9 H Plt Count 214 Seg Neutrophils % 75.6 Sodium 142.4 Potassium 2.6 L* Chloride 101 Carbon Dioxide 33 H Anion Gap 8 BUN 14 Creatinine 1.26 H Est GFR ( Amer) > 60 Glucose 93 Calcium 9.7 Magnesium Total Bilirubin 0.8 AST 64 H Alkaline Phosphatase 75 Total Protein 6.5 Albumin 3.6 TSH 12.50 H 12/03/19 12/04/19 12/04/19 12:00 05:39 05:39 WBC 5.3 RBC 4.04 L Hgb 11.5 L Hct 33.4 L MCV 83 MCH 28.6 MCHC 34.5 RDW 15.8 H Plt Count 183 Seg Neutrophils % 71.1 Sodium 143.1 Potassium 2.5 L* Chloride 106 Carbon Dioxide 33 H Anion Gap 4 L BUN 12 Creatinine 1.08 Est GFR ( Amer) > 60 Glucose 81 Calcium 8.8 Magnesium 2.1 2.3 Total Bilirubin AST Alkaline Phosphatase Total Protein Albumin TSH 12/03/19 12/03/19 12/04/19 12:00 19:38 01:02 Troponin I < 0.012 0.051 0.746 12/04/19 05:39 Troponin I 0.806 Impressions: Chest X-Ray 12/03/19 14:18 IMPRESSION: LEFT PLEURAL EFFUSION. POSSIBLE ATELECTASIS OR INFILTRATE IN THE RETROCARDIAC LEFT LUNG BASE. Assessment and Plan - Diagnosis (1) Hypokalemia Is this a current diagnosis for this admission?: Yes Plan: Secondary to Florinef, unclear duration of treatment with Florinef will continue due to symptomatic hypotension. Potassium 2.5. Magnesium 2.3 Continue oral and IV replacement. Follow-up chemistry. If hypokalemia persists, may need to consider midodrine in lieu of Florinef (2) Hypothyroidism Is this a current diagnosis for this admission?: Yes Plan: Continue home dose levothyroxine (3) Hypotension Is this a current diagnosis for this admission?: Yes Plan: Continue home dose Florinef. Monitor for hypotension (4) Ventricular tachycardia (paroxysmal) Is this a current diagnosis for this admission?: Yes Plan: Secondary to #1, AICD adjustments made. Follow-up telemetry Cardiology is consulted; appreciate Dr. Berkowitz's recommendations. (5) Atrial fibrillation Is this a current diagnosis for this admission?: Yes Plan: Rate controlled, continue Xarelto (6) Hyperlipidemia Is this a current diagnosis for this admission?: Yes Plan: Continue home dose atorvastatin - Time Time Spent with patient: 25-34 minutes Medications reviewed and adjusted accordingly: Yes Anticipated discharge: Home Within: within 24 hours
[2019-12-04] MEDS: MIRTAZAPINE 15 MG TABLET PO SCH (21:14)
[2019-12-04] MEDS: ATORVASTATIN CALCIUM 10 MG TABLET PO SCH (21:15)
[2019-12-04] MEDS: LATANOPROST 0.005% OPH SOLN 2.5 ML OU SCH (21:15)
[2019-12-05] MEDS: FLUDROCORTISONE ACETATE 0.1 MG TABLET PO SCH (05:18)
[2019-12-05 06:26] LABS: ANION GAP 6 (5-19); BLOOD UREA NITROGEN 13 mg/dL (7-20); CALCIUM 8.7 mg/dL (8.4-10.2); CARBON DIOXIDE 29 mmol/L (22-30); CHLORIDE 108 mmol/L (98-107); GLUCOSE 79 mg/dL (75-110)
[2019-12-05 06:31] LABS: POTASSIUM 2.8 mmol/L (3.6-5.0)
[2019-12-05] MEDS: ESCITALOPRAM OXALATE 10 MG TABLET PO SCH (07:28)
[2019-12-05] MEDS: POTASSIUM CHLORIDE 20 MEQ/50 ML RTU IV SCH ×2 (07:29→09:33)
[2019-12-05] MEDS ORDERED: POTASSIUM CHLORIDE 10 MEQ TABLET.ER PO ONE (08:00)
[2019-12-05] MEDS: FERROUS SULFATE 325 MG TABLET PO SCH (09:34)
[2019-12-05] MEDS: MAGNESIUM OXIDE 400 MG TABLET PO SCH (09:34)
[2019-12-05] MEDS: LEVOTHYROXINE SODIUM 0.05 MG TABLET PO SCH (09:34)
[2019-12-05] MEDS: POTASSIUM CHLORIDE 10 MEQ TABLET.ER PO SCH ×2 (09:34→21:42)
[2019-12-05] MEDS: RIVAROXABAN 10 MG TABLET PO SCH (09:34)
[2019-12-05] MEDS: DOCUSATE SODIUM 100 MG CAPSULE PO SCH ×2 (09:34→21:42)
--- NOTE | 2019-12-05 11:22 | PDOC PROGRESS REPORT ---
Subjective Progress Note for:: 12/05/19 Subjective:: The patient is an 84-year-old male with a past medical history of atrial fibrillation, DC, hypertension, hyperlipidemia, left-sided AICD, and hypotension on Florinef who was admitted 12/03/2019 for hyperkalemia resulting in ventricular tachycardia with underlying atrial fibrillation. Patient was seen on morning rounds. He is found resting in bed, comfortably, on room air. He reports that he is feeling well today. He has been ambulatory to the restroom without dizziness, lightheadedness, generalized weakness. He specifically denies chest pain and palpitations. He cannot recall how long he has been prescribed Florinef nor why he was prescribed this medication. He denies history of orthostatic blood pressures, syncope, or knowledge of adrenal insufficiency. He denies fever, orthopnea, dyspnea, abdominal pain, nausea and vomiting. He has no questions or concerns at this time. No concerns per nursing. Reason For Visit: V TAC HYPOKALEMIA Physical Exam Vital Signs: Temp Pulse Resp BP Pulse Ox 98.1 F 70 16 150/88 H 96 12/05/19 08:03 12/05/19 08:03 12/05/19 08:03 12/05/19 08:03 12/05/19 08:03 Intake & Output 12/04/19 12/05/19 12/06/19 06:59 06:59 06:59 Intake Total 1750 1568 50 Output Total 0 Balance 1750 1568 50 Weight 86.3 kg 86.9 kg General appearance: PRESENT: no acute distress, cooperative, well-developed, well-nourished Head exam: PRESENT: atraumatic, normocephalic Eye exam: PRESENT: conjunctiva pink, EOMI, PERRLA. ABSENT: scleral icterus Ear exam: PRESENT: normal external ear exam Mouth exam: PRESENT: moist, tongue midline Neck exam: ABSENT: carotid bruit, JVD, lymphadenopathy, thyromegaly Respiratory exam: PRESENT: clear to auscultation clary, symmetrical, unlabored. ABSENT: rales, rhonchi, wheezes Cardiovascular exam: PRESENT: RRR. ABSENT: diastolic murmur, rubs, systolic murmur Pulses: PRESENT: normal dorsalis pedis pul Vascular exam: PRESENT: normal capillary refill GI/Abdominal exam: PRESENT: normal bowel sounds, soft. ABSENT: distended, guarding, mass, organolmegaly, rebound, tenderness Rectal exam: PRESENT: deferred Extremities exam: PRESENT: full ROM. ABSENT: calf tenderness, clubbing, pedal edema Musculoskeletal exam: PRESENT: ambulatory Neurological exam: PRESENT: alert, awake, oriented to person, oriented to place, oriented to time, oriented to situation, CN II-XII grossly intact. ABSENT: des r sensory deficit Psychiatric exam: PRESENT: appropriate affect, normal mood. ABSENT: homicidal ideation, suicidal ideation Skin exam: PRESENT: dry, intact, warm. ABSENT: cyanosis, rash Results Laboratory Results: 12/04/19 05:39 12/05/19 04:46 12/05/19 04:46 Sodium 143.3 Potassium 2.8 L* Chloride 108 H Carbon Dioxide 29 Anion Gap 6 BUN 13 Creatinine 1.04 Est GFR ( Amer) > 60 Glucose 79 Calcium 8.7 12/03/19 12/03/19 12/04/19 12:00 19:38 01:02 Troponin I < 0.012 0.051 0.746 12/04/19 05:39 Troponin I 0.806 Impressions: Chest X-Ray 12/03/19 14:18 IMPRESSION: LEFT PLEURAL EFFUSION. POSSIBLE ATELECTASIS OR INFILTRATE IN THE RETROCARDIAC LEFT LUNG BASE. Assessment and Plan - Diagnosis (1) Hypokalemia Is this a current diagnosis for this admission?: Yes Plan: Secondary to Florinef, unclear duration of treatment with Florinef will continue due to symptomatic hypotension. Potassium 2.6-> 2.5-> 2.8 Magnesium 2.3 Additional oral and IV replacement. Follow-up chemistry. Will place Florinef on hold. Will obtain orthostatic vital signs and check AM cortisol to assist w/ determining if medication will need to be resumed. (2) Hypothyroidism Is this a current diagnosis for this admission?: Yes Plan: Continue home dose levothyroxine (3) Hypotension Is this a current diagnosis for this admission?: Yes Plan: Will place Florinef on hold due to continued hypokalemia. Will obtain orthostatic vital signs Check AM cortisol. Consider ACTH stimulation testing tomorrow. Monitor for hypotension Fall precautions (4) Ventricular tachycardia (paroxysmal) Is this a current diagnosis for this admission?: Yes Plan: Secondary to #1, AICD adjustments made. Follow-up telemetry Cardiology is consulted; appreciate Dr. Berkwoitz's recommendations. (5) Atrial fibrillation Is this a current diagnosis for this admission?: Yes Plan: Rate controlled, continue Xarelto (6) Hyperlipidemia Is this a current diagnosis for this admission?: Yes Plan: Continue home dose atorvastatin - Time Time Spent with patient: 25-34 minutes Medications reviewed and adjusted accordingly: Yes Anticipated discharge: Home Within: within 24 hours
[2019-12-05] MEDS: MIRTAZAPINE 15 MG TABLET PO SCH (21:42)
[2019-12-05] MEDS: ATORVASTATIN CALCIUM 10 MG TABLET PO SCH (21:42)
[2019-12-05] MEDS: LATANOPROST 0.005% OPH SOLN 2.5 ML OU SCH (21:43)
--- NOTE | 2019-12-05 21:50 | PDOC PROGRESS REPORT ---
Subjective Progress Note for:: 12/05/19 Subjective:: Patient seen. Resting. No more VT. Continues to be hypokalemic. Has been on potassium supplementation all day. Florinef has been discontinued Reason For Visit: V TAC HYPOKALEMIA Physical Exam Vital Signs: Temp Pulse Resp BP Pulse Ox 97.6 F 73 16 135/79 H 95 12/05/19 19:42 12/05/19 19:42 12/05/19 19:42 12/05/19 19:42 12/05/19 19:42 Intake & Output 12/04/19 12/05/19 12/06/19 06:59 06:59 06:59 Intake Total 1750 1568 368 Output Total 0 Balance 1750 1568 368 Weight 86.3 kg 86.9 kg General appearance: PRESENT: no acute distress, cooperative Head exam: PRESENT: atraumatic, normocephalic Eye exam: PRESENT: EOMI Mouth exam: PRESENT: moist Respiratory exam: PRESENT: clear to auscultation clary, symmetrical, unlabored Cardiovascular exam: PRESENT: RRR - Left-sided ICD implant site is well-healed. No edema or erythema., +S1, +S2 GI/Abdominal exam: PRESENT: soft Rectal exam: PRESENT: deferred Musculoskeletal exam: PRESENT: normal inspection Neurological exam: PRESENT: alert, awake, oriented to person, oriented to place, oriented to time, oriented to situation Psychiatric exam: PRESENT: appropriate affect Skin exam: PRESENT: dry, intact, normal color Results Laboratory Results: 12/04/19 05:39 12/05/19 04:46 12/05/19 04:46 Sodium 143.3 Potassium 2.8 L* Chloride 108 H Carbon Dioxide 29 Anion Gap 6 BUN 13 Creatinine 1.04 Est GFR ( Amer) > 60 Glucose 79 Calcium 8.7 12/03/19 12/03/19 12/04/19 12:00 19:38 01:02 Troponin I < 0.012 0.051 0.746 12/04/19 05:39 Troponin I 0.806 Impressions: Chest X-Ray 12/03/19 14:18 IMPRESSION: LEFT PLEURAL EFFUSION. POSSIBLE ATELECTASIS OR INFILTRATE IN THE RETROCARDIAC LEFT LUNG BASE. Assessment & Plan - Diagnosis (1) Ventricular tachycardia (paroxysmal) Is this a current diagnosis for this admission?: Yes Plan: VT slow at 140 bpm Pace terminated Ramp 81% 10 ms. Medtronic DC ICD reprogrammed with three zone programming with ATP and shocks in the new zone Continue oral Amiodarone Continue to replace potassium. May require maintenance potassium. Consider Aldactone (2) Hypokalemia Is this a current diagnosis for this admission?: Yes Plan: Replacing K+ Check Mag as well Consider Aldactone Florinef has been held. Confirmed with the nurse that the patient is received 60 mEq of potassium today and is going to receive another 20 mEq after which an a.m. lab will be drawn.
[2019-12-06 05:51] LABS: ANION GAP 7 (5-19); BLOOD UREA NITROGEN 10 mg/dL (7-20); CALCIUM 8.7 mg/dL (8.4-10.2); CARBON DIOXIDE 28 mmol/L (22-30); CHLORIDE 109 mmol/L (98-107); GLUCOSE 81 mg/dL (75-110); POTASSIUM 3.1 mmol/L (3.6-5.0)
[2019-12-06] MEDS: ESCITALOPRAM OXALATE 10 MG TABLET PO SCH (08:18)
[2019-12-06] MEDS ORDERED: POTASSIUM CHLORIDE 10 MEQ TABLET.ER PO ONE (08:30)
[2019-12-06] MEDS: MAGNESIUM OXIDE 400 MG TABLET PO SCH (09:39)
[2019-12-06] MEDS: DOCUSATE SODIUM 100 MG CAPSULE PO SCH ×2 (09:39→21:06)
[2019-12-06] MEDS: LEVOTHYROXINE SODIUM 0.05 MG TABLET PO SCH (09:39)
[2019-12-06] MEDS: FERROUS SULFATE 325 MG TABLET PO SCH (09:39)
[2019-12-06] MEDS: RIVAROXABAN 10 MG TABLET PO SCH (09:39)
[2019-12-06] MEDS: SPIRONOLACTONE 25 MG TABLET PO SCH (09:39)
--- NOTE | 2019-12-06 12:02 | PDOC PROGRESS REPORT ---
Subjective Progress Note for:: 12/06/19 Subjective:: Patient seen. Resting. No more VT. Continues to be hypokalemic. Has been on potassium supplementation all day. Florinef has been discontinued This morning also patient is hypokalemic. 3.1mEq/L. Reason For Visit: V TAC HYPOKALEMIA Physical Exam Vital Signs: Temp Pulse Resp BP Pulse Ox 98.3 F 71 17 141/91 H 96 12/06/19 07:45 12/06/19 07:45 12/06/19 07:45 12/06/19 07:45 12/06/19 07:45 Intake & Output 12/05/19 12/06/19 12/07/19 06:59 06:59 06:59 Intake Total 1568 568 Output Total 0 Balance 1568 568 Weight 86.9 kg 86.7 kg General appearance: PRESENT: no acute distress, cooperative Head exam: PRESENT: atraumatic, normocephalic Eye exam: PRESENT: EOMI Mouth exam: PRESENT: moist Respiratory exam: PRESENT: symmetrical, unlabored Cardiovascular exam: PRESENT: RRR, +S1, +S2 Pulses: PRESENT: normal radial pulses GI/Abdominal exam: PRESENT: soft Rectal exam: PRESENT: deferred Neurological exam: PRESENT: alert, awake, oriented to person, oriented to place, oriented to time, oriented to situation Psychiatric exam: PRESENT: appropriate affect Skin exam: PRESENT: dry, intact, normal color Results Laboratory Results: 12/04/19 05:39 12/06/19 04:48 12/06/19 04:48 Sodium 143.6 Potassium 3.1 L Chloride 109 H Carbon Dioxide 28 Anion Gap 7 BUN 10 Creatinine 0.99 Est GFR ( Amer) > 60 Glucose 81 Calcium 8.7 12/03/19 12/03/19 12/04/19 12:00 19:38 01:02 Troponin I < 0.012 0.051 0.746 12/04/19 05:39 Troponin I 0.806 Impressions: Chest X-Ray 12/03/19 14:18 IMPRESSION: LEFT PLEURAL EFFUSION. POSSIBLE ATELECTASIS OR INFILTRATE IN THE RETROCARDIAC LEFT LUNG BASE. Assessment & Plan - Diagnosis (1) Ventricular tachycardia (paroxysmal) Is this a current diagnosis for this admission?: Yes Plan: VT slow at 140 bpm Pace terminated Ramp 81% 10 ms. Medtronic DC ICD reprogrammed with three zone programming with ATP and shocks in the new zone Continue oral Amiodarone Continue to replace potassium. May require maintenance potassium. Consider Aldactone (2) Hypokalemia Is this a current diagnosis for this admission?: Yes Plan: Replacing K+ Check Mag as well Consider Aldactone Florinef has been held. This morning's potassium is 3.1 mEq/L. We will continue to require potassium baires pplementation.
[2019-12-06 15:27] LABS: ANION GAP 8 (5-19); BLOOD UREA NITROGEN 10 mg/dL (7-20); CALCIUM 8.9 mg/dL (8.4-10.2); CARBON DIOXIDE 27 mmol/L (22-30); CHLORIDE 107 mmol/L (98-107); GLUCOSE 103 mg/dL (75-110); POTASSIUM 3.6 mmol/L (3.6-5.0)
--- NOTE | 2019-12-06 15:33 | PDOC PROGRESS REPORT ---
Subjective Progress Note for:: 12/06/19 Subjective:: The patient is an 84-year-old male with a past medical history of atrial fibrillation, CA, hypertension, hyperlipidemia, left-sided AICD, and hypotension on Florinef who was admitted 12/03/2019 for hyperkalemia resulting in ventricular tachycardia with underlying atrial fibrillation. Patient was seen on morning rounds. He is found resting in bed, comfortably, on room air. He reports that he is feeling well today. He has been ambulatory to the restroom without dizziness, lightheadedness, generalized weakness. He specifically denies chest pain and palpitations. He denies fever, orthopnea, dyspnea, abdominal pain, nausea and vomiting. He has no questions or concerns at this time. No concerns per nursing. Reason For Visit: V TAC HYPOKALEMIA Physical Exam Vital Signs: Temp Pulse Resp BP Pulse Ox 98.4 F 70 17 148/95 H 95 12/06/19 15:28 12/06/19 15:28 12/06/19 15:28 12/06/19 15:28 12/06/19 15:28 Intake & Output 12/05/19 12/06/19 12/07/19 06:59 06:59 06:59 Intake Total 1568 568 480 Output Total 0 0 Balance 1568 568 480 Weight 86.9 kg 86.7 kg General appearance: PRESENT: no acute distress, cooperative, well-developed, well-nourished Head exam: PRESENT: atraumatic, normocephalic Eye exam: PRESENT: conjunctiva pink, EOMI, PERRLA. ABSENT: scleral icterus Ear exam: PRESENT: normal external ear exam Mouth exam: PRESENT: moist, tongue midline Respiratory exam: PRESENT: clear to auscultation clary, symmetrical, unlabored. ABSENT: rales, rhonchi, wheezes Cardiovascular exam: PRESENT: RRR, +S1, +S2. ABSENT: diastolic murmur, rubs, systolic murmur Pulses: PRESENT: normal dorsalis pedis pul Vascular exam: PRESENT: normal capillary refill GI/Abdominal exam: PRESENT: normal bowel sounds, soft. ABSENT: distended, guarding, mass, organolmegaly, rebound, tenderness Rectal exam: PRESENT: deferred Extremities exam: PRESENT: full ROM. ABSENT: calf tenderness, clubbing, pedal edema Musculoskeletal exam: PRESENT: ambulatory Neurological exam: PRESENT: alert, awake, oriented to person, oriented to place, oriented to time, oriented to situation, CN II-XII grossly intact. ABSENT: motor sensory deficit Psychiatric exam: PRESENT: appropriate affect, normal mood. ABSENT: homicidal ideation, suicidal ideation Skin exam: PRESENT: dry, intact, warm. ABSENT: cyanosis, rash Results Laboratory Results: 12/04/19 05:39 12/06/19 14:42 12/06/19 12/06/19 04:48 14:42 Sodium 143.6 142.2 Potassium 3.1 L 3.6 Chloride 109 H 107 Carbon Dioxide 28 27 Anion Gap 7 8 BUN 10 10 Creatinine 0.99 0.94 Est GFR ( Amer) > 60 > 60 Glucose 81 103 Calcium 8.7 8.9 12/03/19 12/03/19 12/04/19 12:00 19:38 01:02 Troponin I < 0.012 0.051 0.746 12/04/19 05:39 Troponin I 0.806 Impressions: Chest X-Ray 12/03/19 14:18 IMPRESSION: LEFT PLEURAL EFFUSION. POSSIBLE ATELECTASIS OR INFILTRATE IN THE RETROCARDIAC LEFT LUNG BASE. Assessment and Plan - Diagnosis (1) Hypokalemia Is this a current diagnosis for this admission?: Yes Plan: Secondary to Florinef, unclear duration of treatment with Florinef will continue due to symptomatic hypotension. Potassium 2.6-> 2.5-> 2.8 Magnesium 2.3 Additional oral replacement. Start spironolactone 25 mg daily. Have discontinued florinef. Follow-up chemistry. (2) Hypothyroidism Is this a current diagnosis for this admission?: Yes Plan: Continue home dose levothyroxine (3) Hypotension Is this a current diagnosis for this admission?: Yes Plan: Will place Florinef on hold due to continued hypokalemia AM cortisol nml. Orthostatic vital signs each shift. Ambulate in halls. Check AM cortisol. Consider ACTH stimulation testing tomorrow. Monitor for hypotension Fall precautions (4) Ventricular tachycardia (paroxysmal) Is this a current diagnosis for this admission?: Yes Plan: Secondary to #1, AICD adjustments made. Follow-up telemetry Cardiology is consulted; appreciate Dr. Berkowitz's recommendations. (5) Atrial fibrillation Is this a current diagnosis for this admission?: Yes Plan: Rate controlled, continue Xarelto (6) Hyperlipidemia Is this a current diagnosis for this admission?: Yes Plan: Continue home dose atorvastatin - Time Time Spent with patient: 15-24 minutes Medications reviewed and adjusted accordingly: Yes Anticipated discharge: Home Within: within 24 hours
[2019-12-06] MEDS: ATORVASTATIN CALCIUM 10 MG TABLET PO SCH (21:06)
[2019-12-06] MEDS: MIRTAZAPINE 15 MG TABLET PO SCH (21:06)
[2019-12-06] MEDS: LATANOPROST 0.005% OPH SOLN 2.5 ML OU SCH (21:07)
[2019-12-07 06:06] LABS: ANION GAP 5 (5-19); BLOOD UREA NITROGEN 10 mg/dL (7-20); CARBON DIOXIDE 30 mmol/L (22-30); CHLORIDE 107 mmol/L (98-107); GLUCOSE 85 mg/dL (75-110); POTASSIUM 3.3 mmol/L (3.6-5.0)
[2019-12-07] MEDS: MAGNESIUM OXIDE 400 MG TABLET PO SCH (09:04)
[2019-12-07] MEDS: RIVAROXABAN 10 MG TABLET PO SCH (09:04)
[2019-12-07] MEDS: FERROUS SULFATE 325 MG TABLET PO SCH (09:04)
[2019-12-07] MEDS: DOCUSATE SODIUM 100 MG CAPSULE PO SCH (09:04)
[2019-12-07] MEDS: SPIRONOLACTONE 25 MG TABLET PO SCH (09:04)
[2019-12-07] MEDS: LEVOTHYROXINE SODIUM 0.05 MG TABLET PO SCH (09:04)
[2019-12-07] MEDS: ESCITALOPRAM OXALATE 10 MG TABLET PO SCH (09:04)
[2019-12-07 09:15] VITALS: BP 144/80
[2019-12-07] MEDS ORDERED: POTASSIUM CHLORIDE 10 MEQ TABLET.ER PO SCH (10:00)
--- NOTE | 2019-12-07 11:43 | PDOC DISCHARGE SUMMARY ---
Impression - Admit/DC Date/PCP Admission Date/Primary Care Provider: 12/03/19 18:54 WIL SWEENEY MD Discharge Date: 12/07/19 - Discharge Diagnosis (1) Hypokalemia Is this a current diagnosis for this admission?: Yes (2) Hypothyroidism Is this a current diagnosis for this admission?: Yes (3) Hypotension Is this a current diagnosis for this admission?: Yes (4) Ventricular tachycardia (paroxysmal) Is this a current diagnosis for this admission?: Yes (5) Atrial fibrillation Is this a current diagnosis for this admission?: Yes (6) Hyperlipidemia Is this a current diagnosis for this admission?: Yes - Additional Information Resuscitation Status: Full Code Discharge Diet: Cardiac Discharge Activity: Activity As Tolerated, Balance Activity w/Rest Referrals: WIL SWEENEY MD [Primary Care Provider] - 12/18/19 2:00 pm Prescriptions: Spironolactone [Aldactone 25 mg Tablet] 25 mg PO DAILY #30 tablet Potassium Chloride [K-Tab ER] 40 meq PO DAILY #60 tablet.er Home Medications: Amiodarone HCl [Cordarone 200 mg Tablet] 200 mg PO DAILY 12/03/19 Atorvastatin Calcium [Lipitor 10 mg Tablet] 10 mg PO QHS 12/03/19 Celecoxib [Celebrex] 200 mg PO Q12 12/03/19 Docusate Sodium [Colace 100 mg Capsule] 100 mg PO Q12 12/03/19 Escitalopram Oxalate [Lexapro] 20 mg PO QAM 12/03/19 Ferrous Sulfate [Feosol] 325 mg PO DAILY 12/03/19 Fludrocortisone Acetate [Florinef 0.1 mg Tablet] 0.1 mg PO Q12 12/03/19 Latanoprost [Xalatan 0.005% Oph Soln 2.5 ml] 1 drop OU DAILY 12/03/19 Levothyroxine Sodium [Synthroid 0.05 mg Tablet] 50 mcg PO DAILY 12/03/19 Magnesium Oxide [Magox] 400 mg PO DAILY 12/03/19 Mirtazapine [Remeron 15 mg Tablet] 15 mg PO QHS 12/03/19 Rivaroxaban [Xarelto] 20 mg PO DAILY 12/03/19 Acetaminophen [Tylenol 325 mg Tablet] 650 mg PO Q4HP PRN tablet 12/07/19 Potassium Chloride [K-Tab ER] 40 meq PO DAILY #60 tablet.er 01/20/20 Spironolactone [Aldactone 25 mg Tablet] 25 mg PO DAILY #30 tablet 12/07/19 History of Present Illiness History of Present Illness: Per H&P by Dr. Zarate:PARAG HERRERA is a 84 year old male with a past medical history of coronary artery disease, atrial fibrillation, left-sided AICD, congestive heart failure, dyslipidemia and hypotension on Florinef. Patient presents with 2 days of fatigue EKG reveals AV paced rhythm with episodes of nonsustained V. tach then becoming sustained at 145 bpm without ICD intervention. Potassium of 2.6. He receives a 1 L normal saline bolus, magnesium and potassium repletion followed by IV amiodarone resulting in a dual AV paced rhythm. He is seen at bedside by cardiology and [employer]. Adjustm ents to AICD are programmed and he is referred to the hospitalist for observation. He denies chest pain, previous episode, recent change in medications or diarrhea. Hospital Course Hospital Course: Patient was admitted to [facility] on continuous cardiac telemetry. And no further episodes of ventricular tachycardia. Due to persistent hypokalemia, the patient's Florinef was placed on hold. Orthostatic vital signs remained negative and a.m. cortisol level was normal. Patient cannot recall the reason he was started on Florinef. He is advised of the symptoms of orthostatic hypotension and instructed to report these immediately if they return. Cardiology was consulted; Dr. Berkowitz was able to make adjustments to the patient's pacemaker/AICD to prevent further episodes of ventricular tachycardia. The patient received both IV and p.o. potassium replacement. Per cardiology's recommendations, patient was started on spironolactone. Serial chemistries were monitored and potassium stabilized. Patient is discharged home in stable condition. He is provided prescriptions for potassium and Spironolactone. He is advised to follow-up with his primary care provider within 1 week. Recommend repeat chemistry at that time. He is instructed to follow-up with his washer carcass as scheduled. He is encouraged to return to emergency department as needed for concerning symptoms. Physical Exam Vital Signs: Temp Pulse Resp BP Pulse Ox 97.8 F 69 18 144/80 H 93 12/07/19 09:12 12/07/19 09:12 12/07/19 09:12 12/07/19 09:12 12/07/19 09:12 Intake & Output 12/06/19 12/07/19 12/08/19 06:59 06:59 06:59 Intake Total 568 840 Output Total 0 Balance 568 840 Weight 86.7 kg 84 kg General appearance: PRESENT: no acute distress, well-developed, well-nourished Head exam: PRESENT: atraumatic, normocephalic Eye exam: PRESENT: conjunctiva pink, EOMI, PERRLA. ABSENT: scleral icterus Ear exam: PRESENT: normal external ear exam Mouth exam: PRESENT: moist, tongue midline Neck exam: ABSENT: carotid bruit, JVD, lymphadenopathy, thyromegaly Respiratory exam: PRESENT: clear to auscultation clary. ABSENT: rales, rhonchi, wheezes Cardiovascular exam: PRESENT: RRR. ABSENT: diastolic murmur, rubs, systolic murmur Pulses: PRESENT: normal dorsalis pedis pul Vascular exam: PRESENT: normal capillary refill GI/Abdominal exam: PRESENT: normal bowel sounds, soft. ABSENT: distended, guarding, mass, organolmegaly, rebound, tenderness Rectal exam: PRESENT: deferred Extremities exam: PRESENT: full ROM. ABSENT: calf tenderness, clubbing, pedal edema Neurological exam: PRESENT: alert, awake, oriented to person, oriented to place, oriented to time, oriented to situation, CN II-XII grossly intact. ABSENT: motor sensory deficit Psychiatric exam: PRESENT: appropriate affect, normal mood. ABSENT: homicidal ideation, suicidal ideation Skin exam: PRESENT: dry, intact, warm. ABSENT: cyanosis, rash Results Laboratory Results: WBC 5.3 10^3/uL (4.0-10.5) 12/04/19 05:39 RBC 4.04 10^6/uL (4.35-5.55) L 12/04/19 05:39 Hgb 11.5 g/dL (13.5-17.0) L 12/04/19 05:39 Hct 33.4 % (37.9-51.0) L 12/04/19 05:39 MCV 83 fl (80-97) 12/04/19 05:39 MCH 28.6 pg (27.0-33.4) 12/04/19 05:39 MCHC 34.5 g/dL (32.0-36.0) 12/04/19 05:39 RDW 15.8 % (11.5-14.0) H 12/04/19 05:39 Plt Count 183 10^3/uL (150-450) 12/04/19 05:39 Lymph % (Auto) 20.1 % (13-45) 12/04/19 05:39 [place] % (Auto) 7.1 % (3-13) 12/04/19 05:39 Eos % (Auto) 1.0 % (0-6) 12/04/19 05:39 Baso % (Auto) 0.7 % (0-2) 12/04/19 05:39 Absolute Neuts (auto) 3.8 10^3/uL (1.7-8.2) 12/04/19 05:39 Absolute Lymphs (auto) 1.1 10^3/uL (0.5-4.7) 12/04/19 05:39 Absolute Monos (auto) 0.4 10^3/uL (0.1-1.4) 12/04/19 05:39 Absolute Eos (auto) 0.1 10^3/uL (0.0-0.6) 12/04/19 05:39 Absolute Basos (auto) 0.0 10^3/uL (0.0-0.2) 12/04/19 05:39 Seg Neutrophils % 71.1 % (42-78) 12/04/19 05:39 PT 21.3 SEC (11.4-15.4) H 12/03/19 12:00 INR 1.82 12/03/19 12:00 Sodium 141.7 mmol/L (137-145) 12/07/19 05:25 Potassium 3.3 mmol/L (3.6-5.0) L 12/07/19 05:25 Chloride 107 mmol/L (98-107) 12/07/19 05:25 Carbon Dioxide 30 mmol/L (22-30) 12/07/19 05:25 Anion Gap 5 (5-19) 12/07/19 05:25 BUN 10 mg/dL (7-20) 12/07/19 05:25 Creatinine 1.03 mg/dL (0.52-1.25) 12/07/19 05:25 Est GFR ( Amer) > 60 (>60) 12/07/19 05:25 Est GFR (MDRD) Non-Af > 60 (>60) 12/07/19 05:25 Glucose 85 mg/dL (75-110) 12/07/19 05:25 Calcium 9.0 mg/dL (8.4-10.2) 12/07/19 05:25 Magnesium 2.3 mg/dL (1.6-2.3) 12/04/19 05:39 Total Bilirubin 0.8 mg/dL (0.2-1.3) 12/03/19 12:00 Direct Bilirubin 0.3 mg/dL (0.0-0.4) 12/03/19 12:00 Neonat Total Bilirubin Not Reportable 12/03/19 12:00 Neonat Direct Bilirubin Not Reportable 12/03/19 12:00 Neonat Indirect Bili Not Reportable 12/03/19 12:00 AST 64 U/L (17-59) H 12/03/19 12:00 ALT 54 U/L (<50) 12/03/19 12:00 Alkaline Phosphatase 75 U/L (38-126) 12/03/19 12:00 Troponin I 0.806 ng/mL 12/04/19 05:39 Total Protein 6.5 g/dL (6.3-8.2) 12/03/19 12:00 Albumin 3.6 g/dL (3.5-5.0) 12/03/19 12:00 TSH 12.50 uIU/mL (0.47-4.68) H 12/03/19 12:00 Cortisol AM Sample 5.65 ug/dL (4.46-22.7) 12/06/19 04:48 12/03/19 12/03/19 12/04/19 12:00 19:38 01:02 Troponin I < 0.012 0.051 0.746 12/04/19 05:39 Troponin I 0.806 Impressions: Chest X-Ray 12/03/19 14:18 IMPRESSION: LEFT PLEURAL EFFUSION. POSSIBLE ATELECTASIS OR INFILTRATE IN THE RETROCARDIAC LEFT LUNG BASE. Plan Plan of Treatment: Patient is discharged home in stable condition. He is advised to follow-up with his primary care provider within 1 week. Recommend repeat chemistry at that visit to evaluate potassium. Follow-up with established washer carcass as scheduled. Instructed to take medications as prescribed. Change positions slowly. Return to emergency department as needed for concerning symptoms. Time Spent: Greater than 30 Minutes Stroke Is this a Stroke Patient?: No Acute Heart Failure - Is this a Heart Failure Patient?: No
== END 2019-12-07 10:03 | disposition home or self-care (01) | DRG 310 ==
LOC: ER 11:39 → EH 18:54 → 3W 20:05
PROVIDERS: ADMIT Internal Medicine; ATTEND Internal Medicine
DX: I47.2 Ventricular tachycardia (principal); I95.9 Hypotension, unspecified; I11.0 Hypertensive heart disease with heart failure; I50.9 Heart failure, unspecified; E87.6 Hypokalemia; E03.9 Hypothyroidism, unspecified; I48.91 Unspecified atrial fibrillation; E78.5 Hyperlipidemia, unspecified; I25.10 Atherosclerotic heart disease of native coronary artery without angina pectoris; E66.3 Overweight; Z95.810 Presence of automatic (implantable) cardiac defibrillator; I25.2 Old myocardial infarction; Z95.5 Presence of coronary angioplasty implant and graft; Z79.01 Long term (current) use of anticoagulants; Z79.899 Other long term (current) drug therapy; Z82.49 Family history of ischemic heart disease and other diseases of the circulatory system
CPT/HCPCS: 36415; 71045; 80048; 80053; 82533; 83735; 84443; 84484; 85025; 85610; 93005; 93010; 96361; 96365; 96375; 99291; J0282; J3475; J3480; J3490; J7030; J7060